=== PATIENT | male | born 1955 | race African-American/Black ===

== ENCOUNTER 2017-07-12 10:12 | Emergency (ER) | payer OTHER, BC ==
[2017-07-12] MEDS: ACETAMINOPHEN 325 MG TAB PO (11:50)
[2017-07-12 11:57] LABS: BASO % 0.3 % (0.0-1.0); EOS % 0.3 % (0.0-3.0); HEMATOCRIT 40.8 % (42.0-52.0); HEMOGLOBIN 14.8 g/dl (14.0-18.0); IMMATURE GRANULOCYTE % 0.3 % (0-0); LYMPH # 2.3 10^3/uL (1.5-4.5); LYMPH % 29.1 % (24.0-44.0); MEAN CORPUSCULAR HEMOGLOBIN 30.2 pg (27.0-33.0); MEAN CORPUSCULAR HGB CONC 36.3 g/dl (32.0-36.5); MEAN CORPUSCULAR VOLUME 83.3 fl (80.0-96.0); MONO # 0.7 10^3/uL (0.0-0.8); MONO % 9.2 % (0.0-5.0); NEUTROPHILS # 4.9 10^3/uL (1.8-7.7); NEUTROPHILS % 60.8 % (36.0-66.0); PLATELET COUNT, AUTOMATED 303 10^3/uL (150-450); RED CELL DISTRIBUTION WIDTH 13.4 % (11.5-14.5)
[2017-07-12 12:20] LABS: NT-PRO BNP 5 PG/ML (<125)
[2017-07-12 12:23] LABS: ALBUMIN 3.7 GM/DL (3.2-5.2); ALBUMIN/GLOBULIN RATIO 0.93 (1.00-1.93); ALKALINE PHOSPHATASE 56 U/L (45-117); ALT/SGPT 23 U/L (12-78); ANION GAP 9 MEQ/L (8-16); AST/SGOT 19 U/L (7-37); BILIRUBIN,DIRECT < 0.1 MG/DL (0.0-0.2); BILIRUBIN,TOTAL 0.3 MG/DL (0.2-1.0); BLOOD UREA NITROGEN 15 MG/DL (7-18); CALCIUM LEVEL 9.9 MG/DL (8.8-10.2); CARBON DIOXIDE LEVEL 29 MEQ/L (21-32); CHLORIDE LEVEL 99 MEQ/L (98-107); CPK CREATINE PHOSPHOKINASE 194 U/L (39-308); CREATININE FOR GFR 1.06 MG/DL (0.70-1.30); GLOMERULAR FILTRATION RATE > 60.0 (>49); GLUCOSE, FASTING 141 MG/DL (70-100); LIPASE 201 U/L (73-393); POTASSIUM SERUM 3.8 MEQ/L (3.5-5.1); SODIUM LEVEL 137 MEQ/L (136-145); TOTAL PROTEIN 7.7 GM/DL (6.4-8.2); TROPONIN I < 0.02 NG/ML (< 0.10)
[2017-07-12 12:24] LABS: CK-MB VALUE MASS 2.2 NG/ML (0.0-3.6); MB/CK RELATIVE INDEX 1.13 (< OR =4)
== END 2017-07-12 12:53 | disposition home or self-care (01) ==
LOC: M ED 10:12
DX: M75.32 Calcific tendinitis of left shoulder (principal); I44.0 Atrioventricular block, first degree; I10 Essential (primary) hypertension; E11.9 Type 2 diabetes mellitus without complications; N40.1 Benign prostatic hyperplasia with lower urinary tract symptoms; Z87.891 Personal history of nicotine dependence; Z79.82 Long term (current) use of aspirin; Z79.84 Long term (current) use of oral hypoglycemic drugs; Z79.899 Other long term (current) drug therapy
CPT/HCPCS: 73030

== ENCOUNTER 2018-08-26 16:50 | Emergency (ER) | payer OTHER ==
[~2018-08-26] VITALS: Ht 177.8 cm; Wt 105.9 kg
[~2018-08-26 16:50] MED LIST: AMLO10TA5; ASPI81TA52; ATOR40TA75; BD; CHLO125TA; LISI40TA; METF10004; METO50TA7; VITA-122
[2018-08-26] MEDS ORDERED: FISH1000 (17:25)
[2018-08-26 17:30] LABS: BASO % 0.4 % (0.0-1.0); EOS # 0.1 10^3/uL (0.0-0.50); EOS % 0.5 % (0.0-3.0); HEMATOCRIT 34.9 % (42.0-52.0); HEMOGLOBIN 12.2 g/dl (13.5-17.5); LYMPH # 2.3 10^3/uL (1.5-4.5); LYMPH % 20.5 % (24.0-44.0); MEAN CORPUSCULAR HEMOGLOBIN 28.5 pg (27.0-33.0); MEAN CORPUSCULAR VOLUME 81.5 fl (80.0-96.0); MONO # 1.4 10^3/uL (0.0-0.8); MONO % 12.7 % (0.0-5.0); NEUTROPHILS # 7.2 10^3/uL (1.8-7.7); NEUTROPHILS % 65.5 % (36.0-66.0); PLATELET COUNT, AUTOMATED 461 10^3/uL (150-450); RED BLOOD COUNT 4.28 10^6/uL (4.30-6.10)
[2018-08-26 17:38] LABS: BLOOD UREA NITROGEN 11 MG/DL (7-18); CALCIUM LEVEL 9.7 MG/DL (8.8-10.2); CARBON DIOXIDE LEVEL 32 MEQ/L (21-32); CHLORIDE LEVEL 97 MEQ/L (98-107); CPK CREATINE PHOSPHOKINASE 158 U/L (39-308); CREATININE FOR GFR 0.91 MG/DL (0.70-1.30); GLOMERULAR FILTRATION RATE > 60.0 (>49); GLUCOSE, FASTING 110 MG/DL (70-100); POTASSIUM SERUM 3.9 MEQ/L (3.5-5.1); SODIUM LEVEL 136 MEQ/L (136-145); TROPONIN I < 0.02 NG/ML (< 0.10)
--- NOTE | 2018-08-26 17:57 | REP ---
Chest one-view HISTORY: Chest pain Comparison: 04/20/2011 The lungs are clear. The heart is normal in size. The pulmonary vasculature is normal in appearance. Impression: No acute disease. Electronically Signed by Fantasma Tavarez MD 08/26/2018 05:49 P
[2018-08-26] MEDS ORDERED: MORPHINE 4 MG/ML 1ML VIAL/SYRINGE (J2270) IV ONE (18:00)
[2018-08-26] MEDS: GASTROGRAFIN SOLUTION 30ML PO SCH ×2 (18:00→19:00)
[2018-08-26 18:09] LABS: ALBUMIN 3.6 GM/DL (3.2-5.2); ALT/SGPT 26 U/L (12-78); BILIRUBIN,DIRECT 0.1 MG/DL (0.0-0.2); BILIRUBIN,TOTAL 0.4 MG/DL (0.2-1.0); LIPASE 199 U/L (73-393); TOTAL PROTEIN 7.6 GM/DL (6.4-8.2)
--- NOTE | 2018-08-26 20:14 | REPVR ---
EXAM: CT Abdomen and Pelvis Without Contrast EXAM DATE/TIME: 08/26/2018 7:37 PM CLINICAL HISTORY: 63 years old, male; Pain; Abdominal pain; Generalized TECHNIQUE: Axial computed tomography images of the abdomen and pelvis without contrast. All CT scans at this facility use at least one of these dose optimization techniques: automated exposure control; mA and/or kV adjustment per patient size (includes targeted exams where dose is matched to clinical indication); or iterative reconstruction. Coronal and sagittal reformatted images were created and reviewed. COMPARISON: No relevant prior studies available. FINDINGS: Lower thorax: Lung parenchyma is unremarkable except for dependent atelectasis. ABDOMEN: Liver: There appear to be multiple heterogeneous low density lesions in the liver the largest of which is 8 cm in the hepatic dome. Gallbladder and bile ducts: Gallbladder is present and shows no evidence of gallstone. Pancreas: Noncontrast pancreas shows no obvious mass or adjacent fluid. Spleen: Noncontrast spleen shows no obvious focal deformity. Adrenals: Adrenal glands are normal in appearance. Kidneys and ureters: Kidneys show no stone or hydronephrosis. Stomach and bowel: No evidence of small bowel obstruction. Diverticular changes are present within the colon without inflammation. Appendix: Normal caliber appendix is identified, with no adjacent inflammation. PELVIS: Bladder: Bladder appears normal. Reproductive: Unremarkable as visualized. ABDOMEN and PELVIS: Intraperitoneal space: No pneumoperitoneum. Bones/joints: Degenerative changes are seen in the lumbar spine with disc height loss, endplate osteophytes and hypertrophic facet arthropathy. Soft tissues: No effacement of normal fat planes in the ischiorectal fossa. Vasculature: Normal. No abdominal aortic aneurysm. Lymph nodes: No abnormal pelvic sidewall lymph nodes. Other findings: Evaluation of solid organs is limited without IV contrast. IMPRESSION: 1. Multiple ill-defined low-density lesions within the liver, highly suggestive of hepatic metastases from adenocarcinoma. This could be from colon or pancreas. No identifiable primary lesion. 2. Colonic diverticular changes without evidence of acute diverticulitis 3. Exam limitations, as outlined above Electronically signed by: Nic Trevizo On 08/26/2018 20:13:32 PM
--- NOTE | 2018-08-26 20:54 | ECGEPIP ---
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
[2018-08-26] MEDS ORDERED: MIRA3350 PO ×2 (21:17→21:20)
[2018-08-26] MEDS ORDERED: OXYC1TAB23 PO (21:17)
[2018-08-26] MEDS ORDERED: PERCOCET 5MG/325MG TAB PO ONE (21:30)
[2018-08-26 21:35] VITALS: BP 163/85
== END 2018-08-26 21:55 | disposition home or self-care (01) ==
LOC: M ED 16:50
DX: R10.9 Unspecified abdominal pain (principal)
CPT/HCPCS: 71045; 74176; 80048; 80076; 82550; 82553; 83690; 84484; 85025; 93005; 93041; 94760; 96374; 99285; J2270; Q9963

== ENCOUNTER 2018-10-20 11:48 | Inpatient (IN) | payer OTHER ==
[~2018-10-20] VITALS: Ht 177.8 cm; Wt 100.3 kg
[~2018-10-20 11:48] MED LIST changes: -AMLO10TA5; +AMLO10TA5 PO; -ATOR40TA75; +ATOR40TA75 PO; +FISH1000 PO; -LISI40TA; +LISI40TA PO; -METF10004; +METF10004 PO; +MIRA3350 PO; +OXYC1TAB23 PO; -VITA-122; +VITA-122 PO
[2018-10-20] MEDS ORDERED: LANTINJ4 SC (12:19)
[2018-10-20] MEDS ORDERED: VICT18IN SC (12:19)
[2018-10-20] MEDS ORDERED: INSUH10VL SC (12:19)
[2018-10-20 12:46] LABS: BASO % 0.2 % (0.0-1.0); EOS # 0.1 10^3/uL (0.0-0.50); EOS % 0.9 % (0.0-3.0); HEMATOCRIT 30.1 % (42.0-52.0); HEMOGLOBIN 10.4 g/dl (13.5-17.5); LYMPH # 2.2 10^3/uL (1.5-4.5); LYMPH % 15.2 % (24.0-44.0); MEAN CORPUSCULAR HEMOGLOBIN 25.6 pg (27.0-33.0); MEAN CORPUSCULAR HGB CONC 34.6 g/dl (32.0-36.5); MEAN CORPUSCULAR VOLUME 74.1 fl (80.0-96.0); MONO # 1.8 10^3/uL (0.0-0.8); MONO % 12.7 % (0.0-5.0); NEUTROPHILS # 10.2 10^3/uL (1.8-7.7); NEUTROPHILS % 70.3 % (36.0-66.0); PLATELET COUNT, AUTOMATED 550 10^3/uL (150-450); RED BLOOD COUNT 4.06 10^6/uL (4.30-6.10); WHITE BLOOD COUNT 14.5 10^3/uL (4.0-10.0)
[2018-10-20] MEDS ORDERED: NS 1,000 ML IV ONE (13:00)
[2018-10-20] MEDS ORDERED: ONDANSETRON 4MG/2ML VIAL (J2405) IV ONE (13:15)
[2018-10-20 13:26] LABS: ALBUMIN 3.1 GM/DL (3.2-5.2); BILIRUBIN,TOTAL 0.5 MG/DL (0.2-1.0); CALCIUM LEVEL 10.5 MG/DL (8.8-10.2); CREATININE FOR GFR 2.04 MG/DL (0.70-1.30); GLOMERULAR FILTRATION RATE 42.6 (>49); POTASSIUM SERUM 4.3 MEQ/L (3.5-5.1); THYROID STIMULATING HORMONE 1.2 uIU/ML (0.358-3.740); TOTAL PROTEIN 6.9 GM/DL (6.4-8.2)
--- NOTE | 2018-10-20 14:25 | REP ---
CT CHEST WITHOUT IV CONTRAST: CT chest performed without IV contrast. Sagittal and coronal reconstruction images are performed. No infiltrate is seen in either lung. No axillary or definite mediastinal adenopathy is seen. Atherosclerotic calcifications are seen of the thoracic aorta without aneurysm. The heart is not enlarged. There is no pleural or pericardial effusion. Obstructive lesion most consistent with a metastatic lesion is seen in the anterolateral aspect of the right 7th rib. Another is seen in the posterior aspect of the left 6th rib. Ill-defined low density is seen in the T8, T9, and T12 vertebral bodies suggesting metastatic lesions. IMPRESSION: No infiltrate in either lung. No significant adenopathy seen in the chest. There appear to be metastatic lesions involving the right 7th, left 6th ribs as well as T8, T9 and T12 vertebral bodies. Electronically Signed by Rodríguez Perkins MD 10/20/2018 04:23 P
--- NOTE | 2018-10-20 14:32 | REP ---
CT ABDOMEN AND PELVIS WITHOUT ORAL OR IV CONTRAST: CT abdomen and pelvis performed without oral or IV contrast. Sagittal and coronal reconstruction images are performed. The liver demonstrates multiple hypodense nodules diffusely compatible with diffuse metaphyses. There may be confluent nodules at both right and left domes of the liver. Gallbladder is not well distended. The spleen, adrenals, pancreas and kidneys are grossly unremarkable. There is no hydroureteronephrosis. There is moderate atherosclerotic calcification of the abdominal aorta without aneurysm. I see no significant lymphadenopathy. I see no free air or free fluid. The appendix is normal. No gross bowel wall thickening is seen. No definite pelvic mass is seen. Urinary bladder is not well distended or evaluated. There is left colonic diverticulosis. IMPRESSION: Diffuse lesions in the liver most likely representing metastases. No other gross abnormalities. Electronically Signed by Rodríguez Perkins MD 10/20/2018 04:23 P
[2018-10-20 17:17] LABS: CALCIUM LEVEL 9.8 MG/DL (8.8-10.2); CREATININE FOR GFR 1.82 MG/DL (0.70-1.30); GLOMERULAR FILTRATION RATE 48.6 (>49); POTASSIUM SERUM 3.8 MEQ/L (3.5-5.1)
[2018-10-20] MEDS ORDERED: ASPI81TA85 PO (17:20)
[2018-10-20] MEDS ORDERED: CHLO25TA PO (17:23)
[2018-10-20] MEDS ORDERED: ACET500T15 PO (17:23)
[2018-10-20] MEDS ORDERED: ACETAMINOPHEN 500 MG TAB PO PRN (18:00)
--- NOTE | 2018-10-20 18:07 | HPEPDOC ---
[facility] Medical History & Physical Date of Admission October 20, 2018 Attending Physician: SADIQ EDWARDS MD History and Physical CHIEF COMPLAINT: 12 hour history of dizziness and weakness HISTORY OF PRESENT ILLNESS: Patient is a 63-year-old -[place] male, past medical history significant for recent diagnosis of likely liver cancer with bone metastases, insulin dependent diabetes mellitus, hypertension, hypercholesterolemia, who presents emergency department complaining of 12 hours of extreme fatigue, dizziness and lethargy. Patient reports over the last week he has felt increasingly more fatigued. He has not had an appetite and is subsequently reduced his oral intake greatly. This morning, at approximately 06 100, patient woke up and noted feeling lightheaded and dizzy in the shower. Symptoms seemingly resolved with rest, but continued to persist throughout the day and through patient's presentation in the ED. In the emergency department he was noted to have a low blood pressure of 88/50 , a CBC indicated a white count of 14.5 without any overt sign of infection. CMP demonstrated an DAY with BUN/creatinine of 33/2.04. Patient was given a 1 L bolus of fluid in the emergency department, with improvement in his symptoms. Patient's blood pressure remained soft, dipping to the 90s systolic. Hospitalist team was consulted to admit the patient for further management and evaluation. Of historical note, patient receives his medical care at the [facility]. Following his recent diagnosis in august 2017 of multiple liver metastasis, patient has had a difficult time being seen by a [place] speciality provider. He is scheduled for an appointment this upcoming 10/24/18, for initial evaluation. Patient will likely require liver biopsy and colonoscopy. Given the difficulty of obtaining these tests through the [place] system, and assuming resolutions of patient's DAY, the after mentioned diagnostic studies will be attempted to be obtained during this admission. PAST MEDICAL HISTORY: 1. Recent diagnosis of liver metastasis in August 2018 2. Insulin-dependent, type 2 diabetes mellitus 3. Hypertension 4. Hypercholesterolemia PAST SURGICAL HISTORY: 1. Left ACL repair, status post injury, 1987 2. 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 ETOH: Patient reports history of 2 beers nightly Illicit drug use: Patient reports history of occasional marijuana use Other relevant social factors: Patient is a FAMILY HISTORY: Largely noncontributory given patient's advanced age. Patient does report a distant history of diabetes, coronary artery disease and chronic kidney disease requiring dialysis ALLERGIES: Please see below. REVIEW OF SYSTEMS: CONSTITUTIONAL: Patient reports a 2 to three-week history of increasing fatigue. He denies any subjective fevers, chills, night sweats, or changes in weight. HEENT: Patient reports 12 hour history of dizziness, particularly when standing associated with blurry vision, since resolved with IV fluids. Patient denies any history of headache, difficulty hearing, difficulty swallowing. CARDIOVASCULAR: Patient denies chest pain/discomfort, denies pleuritic chest pain RESPIRATORY: Reports history of morning cough, Patient denies any difficulty breathing, shortness of breath, orthopnea, paroxysmal nocturnal dyspnea, wheezing GASTROINTESTINAL: Patient reports some nausea this morning and a two-week history of constipation, he denies reflux symptoms, abdominal pain/discomfort, diarrhea, no history of recent emesis GENITOURINARY: Patient denies any difficulty urinating SKIN: Patient denies any rashes or new/evolving lesions MUSCULOSKELETAL: Patient denies any weakness or muscular skeletal pain NEUROLOGICAL: Patient denies any numbness or tingling in his extremities bilaterally, patient denies any focal neurologic deficits ENDOCRINE: Denies polyuria or polydipsia HEMATOLOGIC/LYMPHATIC: No recent bruising HOME MEDICATIONS: Please see below. PHYSICAL EXAMINATION: VITAL SIGNS: Temperature 97, pulse 77, respiratory rate 16, blood pressure 132/70, pulse oximetry 99 % on room air. GENERAL APPEARANCE: Patient is alert and oriented, resting comfortably in his emergency room bed, in hospital clothing, in no acute distress HEENT: Normocephalic, atraumatic, PERRLA, EOMI, good dental hygiene, no posterior pharyngeal erythema CARDIOVASCULAR: Regular rate and rhythm, normal S1 and S2 free of murmurs LUNGS: Clear to auscultation bilaterally, free of wheezes rales or rhonchi ABDOMEN: Patient reports mild tenderness in the right upper quadrant and lower quadrants bilaterally. Bowel sounds are present throughout. Abdomen is soft, nondistended. EXTREMITIES: Patient moves extremities equally and bilaterally. No lower extremity swelling or edema. Peripheral pulses are intact bilaterally via radial and posterior tibial arteries. tenderness bilaterally NEUROLOGICAL: No focal neurologic deficits, no aphasia, no facial drooping, no extremity weakness, patient is at baseline mentation per who is bedside PSYCHIATRIC: Mood and affect are appropriate LABORATORY DATA: See below. IMAGING: CT abdomen and pelvis (10/20/18): Diffuse lesions in the liver most likely representing metastasis. No other gross abnormalities Chest CT (10/20/18): No infiltrate in either lung. No significant adenopathy se en in the chest. There appears to be metastatic lesions involving the right seventh, left sixth ribs as well as T8, T9 and T12 vertebral bodies ASSESSMENT: Patient is a 63-year-old -[place] male, past medical history significant for recent diagnosis of liver metastasis unknown source, insulin-dependent diabetes mellitus, hypertension hypercholesterolemia, who presents emergency room complaining of 12 hours of increased weakness and dizziness. Evaluation emergency department revealed that the patient did have an DAY. Fluids were given with moderate improvement in the patient's symptoms. Hospitalist team was contacted to admit the patient for further evaluation and treatment. PLAN: Acute kidney injury, secondary to dehydration and decreased appetite over the last week on the back ground of being on ACEI an Diuretics. -Continue normal saline at a rate of 125 ml per hour -Recheck BMP to monitor for renal improvement -stop lisinopril and thiazide. -CT abdomen pelvis did not show any obstructive uropathy Diffuse metastatic lesions in liver , ribs and vertebrae unknown primary. -Identification of patient's likely liver was identified at a prior emergency department removed visit greater than 6 weeks ago. [facility] -Given that the patient will likely require liver biopsy in the near future, and the increasing length of time required to obtain such studies [facility] the [facility], an ultrasound-guided liver biopsy will be performed in the morning. This was discussed with the radiology department who suggested ordering the study stat. -Plan to discuss with GI tomorrow regarding the possibility of patient receiving a colonoscopy during his hospital stay. -Keep patient nothing by mouth after midnight Insulin-dependent diabetes mellitus type 2 -Hold patient's home diabetic medication. -Given the patient's blood sugar was approximately 65 when he presented to the emergency department, patient will be started on SSI with FSBG checks only before meals -Patient able to have a regular diet until midnight this evening, at which point he should remain nothing by mouth for his liver biopsy in the morning. Hypertension -presented with hypotension -While patient is emergency department his blood pressure dipped to a systolic in the 90s. -On multiple blood pressure medications. will stop these -Continue to monitor vitals Hypercholesterolemia -Continue home atorvastatin DVT prophylaxis: SQ heparin Code Status: FULL CODE Vital Signs Vital Signs Date Time Temp Pulse Resp B/P (MAP) Pulse Ox O2 Delivery O2 Flow Rate FiO2 10/20/18 16:40 72 121/62 (81) 77 125/68 (87) 80 132/70 (90) 10/20/18 16:37 99 10/20/18 11:48 97.0 16 Room Air Laboratory Data Labs 24H Laboratory Tests 2 10/20/18 12:35: Immature Granulocyte % (Auto) 0.7, White Blood Count 14.5H, Red Blood Count 4.06L, Hemoglobin 10.4L, Hematocrit 30.1L, Mean Corpuscular Volume 74.1L, Mean Corpuscular Hemoglobin 25.6L, Mean Corpuscular Hemoglobin Concent 34.6, Red Cell Distribution Width 14.6H, Platelet Count 550H, Neutrophils (%) (Auto) 70.3H, Lymphocytes (%) (Auto) 15.2L, Monocytes (%) (Auto) 12.7H, Eosinophils (%) (Auto) 0.9, Basophils (%) (Auto) 0.2, Neutrophils # (Auto) 10.2H, Lymphocytes # (Auto) 2.2, Monocytes # (Auto) 1.8H, Eosinophils # (Auto) 0.1, Basophils # (Auto) 0.0, Nucleated Red Blood Cells % (auto) 0.0, Anion Gap 9, Glomerular Filtration Rate 42.6L, Blood Urea Nitrogen 33H, Creatinine 2.04H, Sodium Level 131L, Potassium Level 4.3, Chloride Level 96L, Carbon Dioxide Level 26, Calcium Level 10.5H, Aspartate Amino Transf (AST/SGOT) 76H, Alanine Aminotransferase (ALT/SGPT) 40, Alkaline Phosphatase 356H, Total Bilirubin 0.5, Total Protein 6.9, Albumin 3.1L, Albumin/Globulin Ratio 0.82L, Lipase 108, Thyroid Stimulating Hormone (TSH) 1.200 10/20/18 16:31: Anion Gap 8, Glomerular Filtration Rate 48.6L, Blood Urea Nitrogen 34H, Creatinine 1.82H, Sodium Level 135L, Potassium Level 3.8, Chloride Level 99, Carbon Dioxide Level 28, Calcium Level 9.8, Urine Color DONNA, Urine Appearance CLOUDYH, Urine pH 5.0, Urine Specific [place] 1.025, Urine Protein 1+H, Urine Glucose (UA) NEGATIVE, Urine Ketones TRACEH, Urine Blood NEGATIVE, Urine Nitrite NEGATIVE, Urine Bilirubin 1+H, Urine Urobilinogen 4.0H, Urine Leukocyte Esterase NEGATIVE, Urine WBC (Auto) 3, Urine RBC (Auto) 3, Urine Hyaline Casts (Auto) 15, Urine Bacteria (Auto) NEGATIVE, Urine Squamous Epithelial Cells 1, Urine Mucus (Auto) SMALL, Urine Sperm (Auto) CBC/BMP Laboratory Tests 10/20/18 12:35 Red Blood Count 4.06 L, Mean Corpuscular Volume 74.1 L, Mean Corpuscular Hemoglobin 25.6 L, Mean Corpuscular Hemoglobin Concent 34.6, Red Cell Distribution Width 14.6 H, Neutrophils (%) (Auto) 70.3 H, Lymphocytes (%) (Auto) 15.2 L, Monocytes (%) (Auto) 12.7 H, Eosinophils (%) (Auto) 0.9, Basophils (%) ( Auto) 0.2, Neutrophils # (Auto) 10.2 H, Lymphocytes # (Auto) 2.2, Monocytes # (Auto) 1.8 H, Eosinophils # (Auto) 0.1, Basophils # (Auto) 0.0, Calcium Level 10.5 H, Aspartate Amino Transf (AST/SGOT) 76 H, Alanine Aminotransferase (ALT/SGPT) 40, Alkaline Phosphatase 356 H, Total Bilirubin 0.5, Total Protein 6.9, Albumin 3.1 L 10/20/18 16:31 Calcium Level 9.8 Home Medications Scheduled Amlodipine Besylate (Amlodipine Besylate) 10 Mg Tablet, 10 MG PO DAILY Aspirin (Aspir 81) 81 Mg Tablet.dr, 81 MG PO DAILY Atorvastatin Calcium (Atorvastatin Calcium) 40 Mg Tab, 40 MG PO DAILY Carvedilol (Carvedilol) 25 Mg Tablet, 12.5 MG PO BID Cholecalciferol (Vitamin D3) (Vitamin D3) 1,000 Unit Tab, 1,000 UNITS PO DAILY Insulin Glargine,Hum.rec.anlog (Lantus Solostar) 100 Unit/1 Ml Insuln.pen, 25 UNIT SC QPM Insulin Human Lispro (Novolog) 100 Unit/1 Ml Vial, 10 UNITS SC DAILY BEFORE MEALS Lisinopril (Lisinopril) 10 Mg Tablet, 10 MG PO QHS Metformin HCl (Metformin HCl) 1,000 Mg Tab, 1,000 MG PO BID Chualar-3 Fatty Acids/Fish Oil (Fish Oil 1,000 mg Capsule) 1,000 Mg Cap, 2,000 MG PO BID Scheduled PRN Acetaminophen (Acetaminophen) 500 Mg Tablet, 1,000 MG PO Q6H PRN for PAIN Allergies Coded Allergies: No Known Drug Allergies (Verified Allergy, Unknown, 10/20/18) A-FIB/CHADSVASC A-FIB History Current/History of A-Fib/PAF?: No Attending Note Attending Note I personally performed a history and physical examination of the patient and discussed his management with the resident. I reviewed the resident's note and agree with the documented findings and plan of care with the following addendum Patient seen to have diffuse mets in liver and bones source yet unidentified. noted to be anemic which has developed over the last 2 to 3 months probably due to progression of cancer. Will check iron studies. Will try to arrange for liver biopsy to get a tissue diagnosis of the mets. Will set up appointment with oncology after discharge. TIN CENTENO DO October 20, 2018 18:07 SADIQ EDWARDS MD October 21, 2018 11:54
[2018-10-20] MEDS ORDERED: DEXTROSE 50% 50 ML SYRINGE IV PRN (18:30)
[2018-10-20] MEDS ORDERED: GLUCAGON FOR INJ 1 MG VIAL (J1610) SC PRN (18:30)
[2018-10-20] MEDS ORDERED: GLUCOSE 4 GM CHEW TABLET PO PRN (18:30)
[2018-10-20] MEDS: ENOXAPARIN 30 MG/0.3 ML SYR (J1650) SC SCH (19:07)
[2018-10-20 20:51] VITALS: BP 137/67
[2018-10-20] MEDS: NS 1,000 ML IV SCH (21:59)
[2018-10-21] MEDS: NS 1,000 ML IV SCH (05:43)
[2018-10-21 05:59] LABS: BASO % 0.2 % (0.0-1.0); EOS # 0.1 10^3/uL (0.0-0.50); HEMATOCRIT 28.7 % (42.0-52.0); HEMOGLOBIN 9.9 g/dl (13.5-17.5); LYMPH # 1.6 10^3/uL (1.5-4.5); LYMPH % 13.6 % (24.0-44.0); MEAN CORPUSCULAR HGB CONC 34.5 g/dl (32.0-36.5); MEAN CORPUSCULAR VOLUME 75.3 fl (80.0-96.0); MONO # 1.7 10^3/uL (0.0-0.8); MONO % 14.2 % (0.0-5.0); NEUTROPHILS # 8.3 10^3/uL (1.8-7.7); NEUTROPHILS % 70.3 % (36.0-66.0); PLATELET COUNT, AUTOMATED 509 10^3/uL (150-450); RED BLOOD COUNT 3.81 10^6/uL (4.30-6.10); WHITE BLOOD COUNT 11.7 10^3/uL (4.0-10.0)
[2018-10-21 06:00] VITALS: BP 137/69
[2018-10-21 06:21] LABS: BLOOD UREA NITROGEN 22 MG/DL (7-18); CALCIUM LEVEL 9.6 MG/DL (8.8-10.2); CARBON DIOXIDE LEVEL 26 MEQ/L (21-32); CHLORIDE LEVEL 102 MEQ/L (98-107); CREATININE FOR GFR 0.88 MG/DL (0.70-1.30); GLOMERULAR FILTRATION RATE > 60.0 (>49); GLUCOSE, FASTING 124 MG/DL (70-100); POTASSIUM SERUM 3.9 MEQ/L (3.5-5.1); SODIUM LEVEL 135 MEQ/L (136-145)
--- NOTE | 2018-10-21 07:25 | ECGEPIP ---
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
[2018-10-21] MEDS: ENOXAPARIN 30 MG/0.3 ML SYR (J1650) SC SCH (07:43)
[2018-10-21] MEDS: ATORVASTATIN 20 MG TAB PO SCH (08:16)
[2018-10-21] MEDS: HumaLOG INSULIN (NovoLOG) PER UNIT SC SCH ×3 (08:16→18:09)
[2018-10-21] MEDS ORDERED: LIDOCAINE 1% MDV 20ML VIAL As Ordered ONE (10:06)
--- NOTE | 2018-10-21 11:37 | IPNPDOC ---
Text Note Date of Service The patient was seen on 10/21/18. NOTE SUBJECTIVE: Patient was interviewed and examined in his hospital room. Patient was found to be resting comfortably in hospital gown. He reports no issues overnight. Patient shares that he is anxious regarding upcoming procedure this morning. His questions were answered and his concerns addressed in detail. OBJECTIVE: VITALS: Please see below. EXAM: GENERAL APPEARANCE: Patient is alert and oriented, resting comfortably in his hospital bed,in hospital clothing, in no acute distress HEENT: Normocephalic, atraumatic, PERRLA, EOMI, good dental hygiene, no posterior pharyngeal erythema CARDIOVASCULAR: Regular rate and rhythm, normal S1 and S2 free of murmurs LUNGS: Clear to auscultation bilaterally, free of wheezes rales or rhonchi ABDOMEN: Patient continues to report mild tenderness in the right upper quadrant and lower quadrants bilaterally. Bowel sounds are present throughout. Abdomen is soft, nondistended. EXTREMITIES: Patient moves extremities equally and bilaterally. No lower extremity swelling or edema or tenderness bilaterally NEUROLOGICAL: No focal neurologic deficits, no aphasia, no facial drooping, no extremity weakness PSYCHIATRIC: Mood and affect are appropriate LABORATORY: Please see below. IMAGING: CT abdomen and pelvis (10/20/18): Diffuse lesions in the liver most likely representing metastasis. No other gross abnormalities Chest CT (10/20/18): No infiltrate in either lung. No significant adenopathy seen in the chest. There appears to be metastatic lesions involving the right seventh, left sixth ribs as well as T8, T9 and T12 vertebral bodies MICRO: Please see below. ASSESSMENT: Patient is a 63-year-old -[place] male, past medical history significant for recent diagnosis of liver metastasis fro yet unidentified primary, insulin- dependent diabetes mellitus, hypertension hypercholesterolemia, who presents emergency room complaining of 12 hours of increased weakness and dizziness. Evaluation emergency department revealed that the patient did have an DAY. Fluids were given with moderate improvement in the patient's symptoms. Hospitalist team was contacted to admit the patient for further evaluation and treatment. PLAN: Acute kidney injury, secondary to dehydration and decreased appetite over the last week -BMP from this morning indicates resolving acute kidney injury -Normal saline rate decreased to 75 mL per hour -Recheck BMP to monitor for renal improvement Multiple metastasis in liver and bones yet unidentified primary. -Patient will have an ultrasound-guided liver biopsy performed this morning -He has remained nothing by mouth overnight Insulin-dependent diabetes mellitus type 2 -Hold patient's home diabetic medication. -Given the patient's blood sugar was approximately 65 when he presented to the emergency department, patient will be started on SSI with FSBG checks only before meals -Patient will return to a regular diet following his procedure this morning Hypertension -While patient is emergency department his blood pressure dipped to a systolic in the 90s. -Blood pressure 137/69 this morning -Continue to monitor vitals Hypercholesterolemia -Continue home atorvastatin DVT prophylaxis: SQ heparin Code Status: FULL CODE A-FIB/CHADSVASC A-FIB History Current/History of A-Fib/PAF?: No VS,Fishbone, I+O VS, Fishbone, I+O Laboratory Tests 10/20/18 12:35 Red Blood Count 4.06 L, Mean Corpuscular Volume 74.1 L, Mean Corpuscular Hemoglobin 25.6 L, Mean Corpuscular Hemoglobin Concent 34.6, Red Cell Distribution Width 14.6 H, Neutrophils (%) (Auto) 70.3 H, Lymphocytes (%) (Auto) 15.2 L, Monocytes (%) (Auto) 12.7 H, Eosinophils (%) (Auto) 0.9, Basophils (%) (Auto) 0.2, Neutrophils # (Auto) 10.2 H, Lymphocytes # (Auto) 2.2, Monocytes # (Auto) 1.8 H, Eosinophils # (Auto) 0.1, Basophils # (Auto) 0.0, Calcium Level 1 0.5 H, Aspartate Amino Transf (AST/SGOT) 76 H, Alanine Aminotransferase (ALT/SGPT) 40, Alkaline Phosphatase 356 H, Total Bilirubin 0.5, Total Protein 6.9, Albumin 3.1 L 10/20/18 16:31 Calcium Level 9.8 10/21/18 05:36 Red Blood Count 3.81 L, Mean Corpuscular Volume 75.3 L, Mean Corpuscular Hemoglobin 26.0 L, Mean Corpuscular Hemoglobin Concent 34.5, Red Cell Distribution Width 14.6 H, Neutrophils (%) (Auto) 70.3 H, Lymphocytes (%) (Auto) 13.6 L, Monocytes (%) (Auto) 14.2 H, Eosinophils (%) (Auto) 1.0, Basophils (%) (Auto) 0.2, Neutrophils # (Auto) 8.3 H, Lymphocytes # (Auto) 1.6, Monocytes # (Auto) 1.7 H, Eosinophils # (Auto) 0.1, Basophils # (Auto) 0.0, Calcium Level 9.6 Vital Signs Date Time Temp Pulse Resp B/P (MAP) Pulse Ox O2 Delivery O2 Flow Rate FiO2 10/21/18 06:00 97.5 88 18 137/69 (91) 97 10/20/18 20:26 Room Air I&O- Last 24 Hours up to 6 AM 10/21/18 06:00 Intake Total 750 ml Output Total 1450 ml Balance -700 ml GME ATTESTATION GME ATTESTATION My faculty preceptor for this patient encounter was physically present during the encounter and was fully available. All aspects of the patient interview, examination, medical decision making process, and medical care plan development were reviewed and approved by the faculty preceptor. The faculty preceptor is aware and concurs with the plan as stated in the body of this note and will attest to such by his/her cosignature. ATTENDING NOTE I personally examined the patient and discussed his management with the resident. I reviewed the resident's note and agree with the documented findings and plan of care. TIN CENTENO DO October 21, 2018 11:37 SADIQ EDWARDS MD October 21, 2018 12:26
[2018-10-21 12:45] VITALS: BP 179/83
[2018-10-21 13:24] LABS: FERRITIN 2836 NG/ML (26-388); IRON (FE) 26 UG/DL (65-175); PERCENT SATURATION 14.8 % (19.7-50.0); TOTAL IRON BINDING CAPACITY 176 UG/DL (250-450)
[2018-10-21 13:47] LABS: FOLATE 6.6 NG/ML
[2018-10-21 14:00] VITALS: BP 142/70
[2018-10-21 22:00] VITALS: BP 152/84
[2018-10-22] MEDS ORDERED: METAMUCIL (PSYLLIUM) PACKET PO PRN (00:30)
[2018-10-22] MEDS ORDERED: SIMETHICONE 80 MG CHEW TAB PO ONE (00:30)
[2018-10-22] MEDS ORDERED: MIRALAX *UNIT DOSE* 17GM PACKET PO PRN (00:30)
[2018-10-22 06:00] VITALS: BP 150/81
[2018-10-22 06:02] LABS: BASO % 0.2 % (0.0-1.0); EOS # 0.1 10^3/uL (0.0-0.50); EOS % 1.1 % (0.0-3.0); HEMATOCRIT 28.8 % (42.0-52.0); HEMOGLOBIN 9.9 g/dl (13.5-17.5); LYMPH # 1.8 10^3/uL (1.5-4.5); LYMPH % 13.7 % (24.0-44.0); MEAN CORPUSCULAR HGB CONC 34.4 g/dl (32.0-36.5); MEAN CORPUSCULAR VOLUME 75.6 fl (80.0-96.0); MONO # 1.9 10^3/uL (0.0-0.8); MONO % 14.7 % (0.0-5.0); NEUTROPHILS # 9.1 10^3/uL (1.8-7.7); NEUTROPHILS % 69.7 % (36.0-66.0); PLATELET COUNT, AUTOMATED 447 10^3/uL (150-450); RED BLOOD COUNT 3.81 10^6/uL (4.30-6.10); WHITE BLOOD COUNT 13.1 10^3/uL (4.0-10.0)
[2018-10-22 06:29] LABS: BLOOD UREA NITROGEN 11 MG/DL (7-18); CALCIUM LEVEL 10.5 MG/DL (8.8-10.2); CARBON DIOXIDE LEVEL 32 MEQ/L (21-32); CHLORIDE LEVEL 100 MEQ/L (98-107); CREATININE FOR GFR 0.64 MG/DL (0.70-1.30); GLOMERULAR FILTRATION RATE > 60.0 (>49); GLUCOSE, FASTING 141 MG/DL (70-100); POTASSIUM SERUM 4.1 MEQ/L (3.5-5.1); SODIUM LEVEL 136 MEQ/L (136-145)
[2018-10-22] MEDS: HumaLOG INSULIN (NovoLOG) PER UNIT SC SCH (08:49)
[2018-10-22] MEDS: ENOXAPARIN 30 MG/0.3 ML SYR (J1650) SC SCH (08:49)
[2018-10-22] MEDS: ATORVASTATIN 20 MG TAB PO SCH (08:49)
[2018-10-22] MEDS ORDERED: LEVEMIR (INSULIN DETEMIR) 1 UNITS/0.01ML SC SCH (09:00)
--- NOTE | 2018-10-22 09:43 | DS.PDOC ---
Discharge Summary General Date of Admission October 20, 2018 at 17:17 Date of Discharge October 22, 2018 Attending Physician: SADIQ EDWARDS MD Discharge Summary PROCEDURES PERFORMED DURING STAY: Patient had an ultrasound guided needle biopsy of his hepatic metastases performed on 10/21/18. ADMITTING DIAGNOSES: 1. Acute kidney injury, likely dehydration 2 Diffuse metastatic lesions in liver, ribs and vertebrae with unknown primary 3. Insulin-dependent diabetes mellitus type 2 4. Hypertension 5. Hypercholesterolemia DISCHARGE DIAGNOSES: 1. Acute kidney injury, likely dehydration 2 Diffuse metastatic lesions in liver, ribs and vertebrae with unknown primary 3. Insulin-dependent diabetes mellitus type 2 4. Hypertension 5. Hypercholesterolemia COMPLICATIONS/CHIEF COMPLAINT: Faraz; Metastasis. HISTORY OF PRESENT ILLNESS: Patient is a 63-year-old -[place] male, past medical history significant for recent diagnosis of likely liver cancer with bone metastases, insulin dependent diabetes mellitus, hypertension, hypercholesterolemia, who presents emergency department complaining of 12 hours of extreme fatigue, dizziness and lethargy. Patient reports over the last week he has felt increasingly more fatigued. He has not had an appetite and is subsequently reduced his oral intake greatly. This morning, at approximately 06 100, patient woke up and noted feeling lightheaded and dizzy in the shower. Symptoms seemingly resolved with rest, but continued to persist throughout the day and through patient's presentation in the ED. In the emergency department he was noted to have a low blood pressure of 88/50 , a CBC indicated a white count of 14.5 without any overt sign of infection. CMP demonstrated an FARAZ with BUN/creatinine of 33/2.04. Patient was given a 1 L bolus of fluid in the emergency department, with improvement in his symptoms. Patient's blood pressure remained soft, dipping to the 90s systolic. Hospitalist team was consulted to admit the patient for further management and evaluation. Of historical note, patient receives his medical care at the [facility]. Following his recent diagnosis in august 2017 of multiple liver metastasis, patient has had a difficult time being seen by a [place] speciality provider. He is scheduled for an appointment this upcoming 10/24/18, for initial evaluation. Patient will likely require liver biopsy and colonoscopy. Given the difficulty of obtaining these tests through the [place] system, and assuming resolutions of patient's FARAZ, the after mentioned diagnostic studies will be attempted to be obtained during this admission. HOSPITAL COURSE: Upon admission to the floor, patient continued to receive IV fluids with monitoring of his kidney function via BMPs. By morning, patient's a FARAZ was found to be resolving. An ultrasound-guided liver biopsy was performed the morning of 10/22/18 without any adverse events. On the morning of discharge, patient's vitals remained stable, his morning lab works did not show any acute abnormalities. Discharge was discussed with the patient in detail and his questions answered appropriately. Patient was in agreement with the plan. DISCHARGE MEDICATIONS: Please see below. ALLERGIES: Please see below. PHYSICAL EXAMINATION ON DISCHARGE: GENERAL APPEARANCE: Patient is alert, oriented, resting comfortably in his hospital bed, wearing hospital gown. In no acute distress. Patient is able to answer questions appropriately and participate in his care HEENT: Normocephalic, atraumatic, PERRLA, EOMI, good dental hygiene, no posterior pharyngeal erythema CARDIOVASCULAR: Regular rate and rhythm, normal S1 and S2 free of murmurs LUNGS: Clear to auscultation bilaterally, free of wheezes rales or rhonchi ABDOMEN: Soft, nontender, nondistended. Gauze covering needle biopsy incision site noted to be free of blood or drainage. No surrounding erythema or other signs of infection. EXTREMITIES: Patient moves extremities equally and bilaterally. No lower extremity swelling or edema. Peripheral pulses are intact bilaterally via radial and posterior tibial arteries. tenderness bilaterally NEUROLOGICAL: No focal neurologic deficits, no aphasia, no facial drooping, no extremity weakness PSYCHIATRIC: Mood and affect are appropriate LABORATORY DATA: Please see below. IMAGING: CT abdomen and pelvis (10/20/18): Diffuse lesions in the liver most likely representing metastasis. No other gross abnormalities Chest CT (10/20/18): No infiltrate in either lung. No significant adenopathy seen in the chest. There appears to be metastatic lesions involving the right seventh, left sixth ribs as well as T8, T9 and T12 vertebral bodies ACTIVITY: As tolerated DIET: As tolerated, please limit calcium intake as discussed at time of discharge DISCHARGE PLAN: Discharge home with close follow-up DISCHARGE INSTRUCTIONS: Please monitor dietary and supplemental calcium intake as discussed on discharge. [facility] Please follow-up with [facility] oncology in 7 to 10 days Please return to the emergency department should your symptoms worsen or fail to improve. DISCHARGE CONDITION: Stable TIME SPENT ON DISCHARGE: Greater than 35 minutes. Vital Signs/I&Os Vital Signs Date Time Temp Pulse Resp B/P (MAP) Pulse Ox O2 Delivery O2 Flow Rate FiO2 10/22/18 06:00 97.6 73 14 150/81 (104) 97 10/20/18 20:26 Room Air I&O- Last 24 Hours up to 6 AM 10/22/18 06:00 Intake Total 2760 ml Output Total 1500 ml Balance 1260 ml Laboratory Data Labs 24H Laboratory Tests 2 10/21/18 11:52: Bedside Glucose (Misc Panel) 221H 10/21/18 13:02: Vitamin B12 Level 1170, Folate 6.6 10/21/18 16:30: Bedside Glucose (Misc Panel) 209H 10/21/18 20:07: Bedside Glucose (Misc Panel) 212H 10/22/18 05:33: Immature Granulocyte % (Auto) 0.6, White Blood Count 13.1H, Red Blood Count 3.81L, Hemoglobin 9.9L, Hematocrit 28.8L, Mean Corpuscular Volume 75.6L, Mean Corpuscular Hemoglobin 26.0L, Mean Corpuscular Hemoglobin Concent 34.4, Red Cell Distribution Width 14.5, Platelet Count 447, Neutrophils (%) (Auto) 69.7H, Lymphocytes (%) (Auto) 13.7L, Monocytes (%) (Auto) 14.7H, Eosinophils (%) (Auto) 1.1, Basophils (%) (Auto) 0.2, Neutrophils # (Auto) 9.1H, Lymphocytes # (Auto) 1.8, Monocytes # (Auto) 1.9H, Eosinophils # (Auto) 0.1, Basophils # (Auto) 0.0, Nucleated Red Blood Cells % (auto) 0.0, Anion Gap 4L, Glomerular Filtration Rate > 60.0, Blood Urea Nitrogen 11, Creatinine 0.64L, Sodium Level 136, Potassium Level 4.1, Chloride Level 100, Carbon Dioxide Level 32, Calcium Level 10.5H CBC/BMP Laboratory Tests 10/22/18 05:33 Red Blood Count 3.81 L, Mean Corpuscular Volume 75.6 L, Mean Corpuscular Hemoglobin 26.0 L, Mean Corpuscular Hemoglobin Concent 34.4, Red Cell Distribution Width 14.5, Neutrophils (%) (Auto) 69.7 H, Lymphocytes (%) (Auto) 13.7 L, Monocytes (%) (Auto) 14.7 H, Eosinophils (%) (Auto) 1.1, Basophils (%) (Auto) 0.2, Neutrophils # (Auto) 9.1 H, Lymphocytes # (Auto) 1.8, Monocytes # (Auto) 1.9 H, Eosinophils # (Auto) 0.1, Basophils # (Auto) 0.0, Calcium Level 10.5 H FSBS Laboratory Tests Test 10/21/18 11:52 10/21/18 16:30 10/21/18 20:07 Range/Units Bedside Glucose (Misc Panel) 221 209 212 80-115 MG/DL Discharge Medications Scheduled Amlodipine Besylate (Amlodipine Besylate) 10 Mg Tablet, 10 MG PO DAILY Aspirin (Aspir 81) 81 Mg Tablet.dr, 81 MG PO DAILY, (Reported) Atorvastatin Calcium (Atorvastatin Calcium) 40 Mg Tab, 40 MG PO DAILY, (Reported) Carvedilol (Carvedilol) 25 Mg Tablet, 12.5 MG PO BID, (Reported) Cholecalciferol (Vitamin D3) (Vitamin D3) 1,000 Unit Tab, 1,000 UNITS PO DAILY, (Reported) Insulin Glargine,Hum.rec.anlog (Lantus Solostar) 100 Unit/1 Ml Insuln.pen, 25 UNIT SC QPM Insulin Human Lispro (Novolog) 100 Unit/1 Ml Vial, 10 UNITS SC DAILY, (Reported) BEFORE MEALS Lisinopril (Lisinopril) 10 Mg Tablet, 10 MG PO QHS Metformin HCl (Metformin HCl) 1,000 Mg Tab, 1,000 MG PO BID, (Reported) [place]-3 Fatty Acids/Fish Oil (Fish Oil 1,000 mg Capsule) 1,000 Mg Cap, 2,000 MG PO BID, (Reported) Scheduled PRN Acetaminophen (Acetaminophen) 500 Mg Tablet, 1,000 MG PO Q6H PRN for PAIN, (Reported) Allergies Coded Allergies: No Known Drug Allergies (Verified Allergy, Unknown, 10/20/18) GME ATTESTATION GME ATTESTATION My faculty preceptor for this patient encounter was physically present during the encounter and was fully available. All aspects of the patient interview, examination, medical decision making process, and medical care plan development were reviewed and approved by the faculty preceptor. The faculty preceptor is aware and concurs with the plan as stated in the body of this note and will attest to such by his/her cosignature. ATTENDING NOTE I saw and evaluated the patient. I agree with the finding and the plan of care as documented in the resident's note. I agree with the resident's discharge summary . I personally spent 35 mins in counselling and coordinating the pateint's discharge with appropriate follow ups with specialist. I counselled the patient and his regarding his diagnosis, tests, follow up needed and his medications. TIN CENTENO DO October 22, 2018 09:43 SADIQ EDWARDS MD November 01, 2018 19:41
[2018-10-22] MEDS ORDERED: LISI10TA4 PO (09:51)
[2018-10-22] MEDS ORDERED: LANTINJ4 SC (09:51)
[2018-10-22] MEDS ORDERED: AMLO10TA5 PO (09:51)
[2018-10-22] MEDS ORDERED: amLODIPine 5 MG TAB PO ONE (10:15)
[2018-10-22 11:17] VITALS: BP 161/87
--- NOTE | 2018-10-26 11:42 | REP ---
Ultrasound-guided liver biopsy This procedure was performed by Felisha Roberson [facility], under the personal supervision of Dr. Perkins. The risks and benefits of the procedure were explained to the patient and informed consent was obtained both verbally and written. Directly prior to the start of the procedure, a formal timeout was done in the procedure room. A lesion in the left lobe of the liver was localized using ultrasound guidance. The skin was prepped and draped in a sterile fashion. 12 ml of 1% lidocaine was used as a local anesthetic. Using ultrasound guidance a small skin vivian was made and a 19/20 gauge coaxial needle biopsy system was inserted and advanced into the liver. 5 core biopsy samples were obtained and sent to the lab. The patient tolerated the procedure well and there were no immediate complications. After the appropriate monitored convalescence the patient was discharged from the department. Reviewed by LAURA Choi 10/21/2018 04:40 P Electronically Signed by Rodríguez Perkins MD 10/26/2018 11:32 A
== END 2018-10-22 11:50 | disposition home or self-care (01) | DRG 436 ==
LOC: M ED 11:48 → M ED INP 17:17 → M MSPAV 20:51
PROVIDERS: ADMIT Internal Medicine Nephrology; ATTEND Internal Medicine Nephrology
PROC: 0FB03ZX Excision of Liver, Percutaneous Approach, Diagnostic (ICD-10-PCS; principal; 2018-10-21)
DX: C78.7 Secondary malignant neoplasm of liver and intrahepatic bile duct (principal); C79.51 Secondary malignant neoplasm of bone; N17.9 Acute kidney failure, unspecified; E86.0 Dehydration; E78.00 Pure hypercholesterolemia, unspecified; I10 Essential (primary) hypertension; E11.9 Type 2 diabetes mellitus without complications; C80.1 Malignant (primary) neoplasm, unspecified; Z79.4 Long term (current) use of insulin; Z79.82 Long term (current) use of aspirin; Z79.899 Other long term (current) drug therapy; Z87.891 Personal history of nicotine dependence

== ENCOUNTER 2018-11-01 13:02 | Outpatient (RCR) | payer OTHER ==
[~2018-11-01] VITALS: Ht 177.8 cm; Wt 99.7 kg
[~2018-11-01 13:02] MED LIST changes: -ASPI81TA26 PO; -CARV25TA PO; -INSULANT SC; -OXYC-517 PO; -PROHANCE 279.3MG/ML 15ML VIAL (A9576) As Ordered ONE; -PROHANCE 279.3MG/ML 5ML VIAL (A9576) As Ordered ONE
[2018-11-01 13:25] VITALS: BP 118/69
[2018-11-01] MEDS ORDERED: CARV25TA PO ×2 (13:41→22:03)
[2018-11-01 15:10] LABS: HEMATOCRIT 30.9 % (42.0-52.0); HEMOGLOBIN 10.1 g/dl (13.5-17.5); LYMPH % 14.2 % (24.0-44.0); MEAN CORPUSCULAR HEMOGLOBIN 26.4 pg (27.0-33.0); MEAN CORPUSCULAR HGB CONC 32.7 g/dl (32.0-36.5); MEAN CORPUSCULAR VOLUME 80.9 fl (80.0-96.0); NEUTROPHILS # 10.3 10^3/uL (1.8-7.7); NEUTROPHILS % 77.5 % (36.0-66.0); RED BLOOD COUNT 3.82 10^6/uL (4.30-6.10); WHITE BLOOD COUNT 13.3 10^3/uL (4.0-10.0)
[2018-11-01 15:29] LABS: ALBUMIN 3.3 GM/DL (3.5-5.2); BLOOD UREA NITROGEN 10 MG/DL (6-20); CARBON DIOXIDE LEVEL 25 MEQ/L (23-31); CHLORIDE LEVEL 103 MMOL/L (98-107); CREATININE FOR GFR 0.72 MG/DL (0.90-1.30); GLUCOSE, FASTING 171 MG/DL (70-105); POTASSIUM SERUM 4.6 MMOL/L (3.5-5.1); SODIUM LEVEL 136 MMOL/L (135-145); TOTAL PROTEIN 6.1 GM/DL (6.4-8.3)
[2018-11-01 15:36] LABS: GLOMERULAR FILTRATION RATE > 60.0 (>49)
[2018-11-01 15:46] LABS: INR 1.24; PROTHROMBIN TIME 15.8 SECONDS (12.1-14.4)
[2018-11-01 15:54] LABS: PROSTATIC SPECIFIC AG MONITOR 24.5 NG/ML (< 4.00)
[2018-11-01 16:34] LABS: CA19-9 TUMOR MARKER,CARBOHYDRA 67.9 U/ML (<35.0)
[2018-11-01] MEDS ORDERED: CHLO25TA PO (22:03)
[2018-11-01] MEDS ORDERED: AMLO10TA5 PO (22:03)
[2018-11-01] MEDS ORDERED: INSULANT SC (22:03)
[2018-11-01] MEDS ORDERED: OXYC-517 PO (22:03)
[2018-11-01] MEDS ORDERED: LISI10TA4 PO (22:03)
[2018-11-01] MEDS ORDERED: ASPI81TA26 PO (22:03)
--- NOTE | 2018-11-02 06:59 | MEDONC ---
MEDICAL ONCOLOGY INITIAL VISIT DATE OF SERVICE: 11/01/2018 DIAGNOSIS: Metastatic adenocarcinoma with liver and bone metastases recently diagnosed, uncertain primary. HISTORY OF PRESENT ILLNESS: Harris Parisi is a 63-year-old man with a remote smoking history, type 2 diabetes, hypertension, and elevated cholesterol who presented to the emergency room in [place] in August complaining of abdominal pain. Abdomen and pelvis CT with oral contrast only showed multiple heterogeneous low density lesions of the liver, largest 8 cm in the hepatic dome, no evidence of bowel obstruction, normal adrenal glands, and normal appearing bladder. Overall impression was of multiple ill defined low density lesions in the liver highly suggestive of hepatic metastases from adenocarcinoma... could be from colon or pancreas, no identifiable primary lesion, and colonic diverticular changes without evidence of acute diverticulitis. The patient was given Percocet, discharged home and instructed to call the GI office for GI followup. He next presented to the emergency room 10/20/2018 with overwhelming fatigue, pain and dizziness. He was found to be in acute kidney failure with creatinine of 2.0 and GFR 40, down from normal and mild hyponatremia. He was admitted, received hydration and creatinine normalized. Notable on that admission was calcium level rising to 10.5 the day of discharge. On that admission, 10/21/2018, FNA of the liver was done showing metastatic high-grade adenocarcinoma most likely metastatic to liver. Today, Harris is accompanied by his . He is quite a poor historian. For quite a while his was out of the examining room and Harris had a difficult time answering questions, pausing for a long time and unable to summon up facts. According to his and himself, this is not his baseline. He complains of severe pain involving his right posterior lumbar area and back. Repeat abdomen and pelvis CT during his recent hospitalization revealed multiple hypodense nodules in the liver compatible with diffuse metastases, no hydronephrosis, no significant lymphadenopathy. Chest CT showed no significant thoracic adenopathy or mass, but metastatic lesions involving the right 7th and left 6th ribs, as well as, T8, T9 and T12 vertebral bodies. Harris has been taking Tylenol with no effect. He completed a short course of Percocet. He reports infrequent bowel movements in the last few days. In the last 3 months, he has lost 30 pounds. PAST MEDICAL HISTORY: Hypertension, insulin-dependent type 2 diabetes and elevated cholesterol. The patient reports he has had a PSA checked at the [facility] in [place], but does not know the number. PAST SURGICAL HISTORY: Left ACL repair in 1987, right hand surgery. ALLERGIES: No known drug allergies. MEDICATIONS: - acetaminophen 500 mg 2 tablets q. 6 hours p.r.n. - amlodipine 10 mg daily - aspirin 81 mg daily - atorvastatin 40 mg daily - carvedilol 12.5 mg b.i.d. - cholecalciferol 1000 units daily - Insulin Glargine 25 units subcu q. p.m. - Insulin Lispro 10 units subcu daily pre meal - lisinopril 10 mg daily - metformin 1000 mg b.i.d. - Drumright 3 fatty acid 1000 mg tab two b.i.d. FAMILY HISTORY: Father of a brain tumor at age 47. No other malignancy in the family. SOCIAL HISTORY: Approximate 40 pack-year smoking history, stopped 2013. Alcohol two drinks a day until recently none. 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 Primary care at [facility] in [place], RODNEY Delgado. , lives with his . REVIEW OF SYSTEMS: 12 system written review completed by the patient. Positive for recent weight change, loss of appetite, increased fatigue, very bad pain, change in bowel movements. No blood in stool, increased urinary frequency, dizziness, and no falls; in addition, the patient denies blood in his stool or urine. Remainder of 12 system review negative. PHYSICAL EXAMINATION: Patient is a mildly overweight gentleman, clearly fatigued, seated in a wheelchair. He gets out of the wheelchair with difficulty and gets onto the table. Difficult to tolerate reclining on the electronic table, complains of back pain. Respiratory: Clear lungs to auscultation bilaterally anteriorly and posteriorly. No wheezes, no rales. Cardiac: S1 and S2, regular rate and rhythm. No murmur, no gallop. Abdomen: Soft, nontender, no palpable mass. No hepatomegaly or splenomegaly. Extremities: No edema. Lymph Nodes: No palpable submandibular, cervical, supraclavicular or axillary adenopathy. Musculoskeletal: No tenderness to percussion along the vertebral column, but tenderness in the right lateral anterior rib area in the lower ribs to deep palpation. Neurologic Examination: Cranial nerves II-XII grossly intact. Muscle strength 5. On upper extremity extension, there is right-sided pain to left extension against force. On the left hip flexion and extension right-sided lumbar area pain. LABS: Obtained following visit include WBC 13.3, hemoglobin 10, hematocrit 31, platelets 470, MCV 81, normal electrolytes, creatinine 0.72, glucose 171, calcium 12, albumin 3.3, AST 35, ALT 16, alk phos 369, CEA 8.7, CA19-9 68, PSA 24.5, PT 15.8, normal INR, ferritin 10/21/2018 was 2800, and total bilirubin 0.7. IMPRESSION: 63-year-old man with metastatic adenocarcinoma diffusely involving liver, focally involving skeleton, with severe low back pain and crossed positive leg and arm flexion and extension test suggestive of spinal cord compressing lesion. Widely elevated tumor markers including CEA, PSA, CA19-9. CA19-9 notably elevated to 67 or 68. Differential diagnosis of this patient's metastatic cancer includes pancreatic cancer, colon cancer and prostate cancer. Currently he is clinically in some metabolic disarray, but highest concern is for a cord compressing lesion. PLAN: 1. Stat thoracic and lumbar MRI with and without contrast to rule out cord compression. 2. Hypercalcemia. Result came back after office visit. I will direct the patient to the emergency room where he should receive hydration and admission for pain control. 3. During the visit, I prescribed oxycodone 5 mg 1-2 tablets up to three times daily with a 7-day supply. 4. If cord compression present, will start him on dexamethasone 4 mg t.i.d. and notify radiation oncology immediately. Unreviewed DD: Kathy Newman MD 11/01/2018 05:34 P DT: hilda 11/02/2018 06:04 A [facility]
--- NOTE | 2018-11-07 09:00 | RADONC ---
RADIATION ONCOLOGY CONSULTATION NOTE DATE OF CONSULTATION: 11/02/2018 CHART NUMBER: [id number]. DIAGNOSIS: Unknown primary. STAGE: IV, widely metastatic. ECOG PERFORMANCE STATUS: 4. CONSULTATION NOTE: Mr. Parisi is a 63-year-old black male with the diagnosis of widely metastatic end-stage high-grade adenocarcinoma who is presenting to us for consideration of palliative radiation therapy to his lower back for treatment of significantly painful bony metastases. HISTORY OF PRESENT ILLNESS: The patient was in his usual state of health until August of this year when he presented to our emergency room complaining of abdominal pain. Apparently, a CT scan of the abdomen and pelvis was undertaken on August 26, 2018, which showed multiple ill-defined low-density lesions in the liver, highly suggestive of hepatic metastatic disease. On 10/21/2018, the patient underwent an image-guided biopsy of his liver lesion, which showed a high-grade adenocarcinoma. It is of unknown primary origin. He has had increasing back pain, and it has become difficult to ambulate. A CT scan of the chest was done on 10/20/2018 and showed no infiltrate in either lung. There was no significant lymphadenopathy in the chest. There were, however, noted to be bony metastatic sites at T8, T9, and T12. There were also rib metastasis on the right 7th and left 6th ribs. An MRI of the T spine done 11/01/2018 showed small patchy areas of bright signal intensity from C7 through T8 consistent with small metastatic lesions. There were large rounded areas of bright signal intensity at T9, T10, T11, and T12 consistent with metastatic lesions, as well. The lesions measured approximately 2 cm in size each. There was a bright signal intensity throughout the entire L1 vertebral body, as well. An MRI of the LS spine done 11/01/2018 confirmed the above and a 2 cm lesion in the lower sacrum consisting with a metastatic disease. There were severe metastases at the L3 vertebral body and metastatic end-plate disease at L4-L5 and S1. On 11/01/2018, a CT of the pelvis was undertaken and showed a 3.5 cm lesion in the left iliac bone. The patient is now in a hospital bed under pain medications. PAST MEDICAL HISTORY: The patient's past medical history is positive for insulin-dependent type 2 diabetes and elevated cholesterol. He had a left ACL repair in 1987 and right hand surgery. ALLERGIES: The patient has no known drug allergies. FAMILY HISTORY: The patient's family history is positive for a father with the brain tumor. SOCIAL HISTORY: The patient has a 40 pack-year smoking history. He discontinued smoking in 2013. He drinks two alcoholic beverages a day. REVIEW OF SYSTEMS: The patient's review is difficult to obtain at this time since he is heavily medicated. He reports back pain, but review of systems is otherwise at this time subjectively negative. He denies nausea, vomiting, fevers, chills, night sweats, diplopia, headaches, anxiety or depression, anorexia, weight loss, visual disturbances, chest pain, urinary or bowel difficulties, bone pain, or neurological problems. PHYSICAL EXAMINATION: The patient is presenting in a stretcher and is medicated. HEENT exam is normocephalic, atraumatic. He does appear to have some periorbital edema and perhaps some slight jaundice. His lungs are generally clear to auscultation and percussion. His heart has a regular rate and rhythm. His abdomen is benign with no masses or tenderness. I do not appreciate any lymphadenopathy. His neurological exam is intact to sensory and motor. I do not appreciate any neurological deficit. His movements are limited secondary to his discomfort. ASSESSMENT: Mr. Parisi is presenting to us today with what appears to be widely metastatic high-grade adenocarcinoma of unknown primary for consideration of palliative radiation therapy for significant bone pain and metastases. Clearly, he is a candidate for this treatment, and I have so informed him. I have discussed with the patient in detail the potential benefits, as well as possible acute and chronic sequelae of external beam radiation therapy. We did discuss logistics of treatment planning, simulation, and subsequent fractionated daily radiation treatments. I have scheduled the patient for simulation today. The treatment planning can be completed today, and the patient can begin radiation tomorrow. This way, we can get two treatments in before the weekend. I will coordinate the patient's care with medical oncology. Clearly, radiation cannot be used to treat his massive liver disease. The only option that may prolong this patient's life would be some systemic options. Of course, I will defer to the expertise of our medical oncologist, Dr. Newman. In the meantime, radiation will begin to the spine to alleviate some of his pain so that we can reduce some of his pain medications. cc: MD Darcie Chamberlain MD
== END 2018-11-01 14:47 | disposition home or self-care (01) ==
LOC: M ONCM 13:02
PROVIDERS: ATTEND Internal Medicine Medical Oncology
DX: C80.1 Malignant (primary) neoplasm, unspecified (principal); C79.51 Secondary malignant neoplasm of bone; C78.7 Secondary malignant neoplasm of liver and intrahepatic bile duct; E11.9 Type 2 diabetes mellitus without complications; I10 Essential (primary) hypertension; E83.52 Hypercalcemia; E78.5 Hyperlipidemia, unspecified; Z79.899 Other long term (current) drug therapy

== ENCOUNTER 2018-11-01 20:39 | Inpatient (IN) | payer OTHER ==
[~2018-11-01] VITALS: Ht 177.8 cm; Wt 96.0 kg
[~2018-11-01 20:39] MED LIST changes: +CARV25TA PO
[2018-11-01] MEDS ORDERED: NS 1,000 ML IV ONE (21:15)
[2018-11-01] MEDS ORDERED: DEXTROSE 50% 50 ML SYRINGE IV PRN (21:45)
[2018-11-01] MEDS ORDERED: GLUCAGON FOR INJ 1 MG VIAL (J1610) SC PRN (21:45)
[2018-11-01] MEDS ORDERED: GLUCOSE 4 GM CHEW TABLET PO PRN (21:45)
[2018-11-01] MEDS ORDERED: CARV25TA PO (22:03)
[2018-11-01] MEDS ORDERED: CHLO25TA PO (22:03)
[2018-11-01] MEDS ORDERED: LISI10TA4 PO (22:03)
[2018-11-01] MEDS ORDERED: ASPI81TA26 PO (22:03)
[2018-11-01] MEDS ORDERED: OXYC-517 PO (22:03)
[2018-11-01] MEDS ORDERED: AMLO10TA5 PO (22:03)
[2018-11-01] MEDS ORDERED: INSULANT SC (22:03)
[2018-11-01] MEDS: oxyCODONE 5MG TAB PO PRN (22:17)
[2018-11-01 23:20] VITALS: BP 176/80
--- NOTE | 2018-11-01 23:22 | REPVR ---
EXAM: CT Pelvis Without Contrast, Skeletal EXAM DATE/TIME: 11/01/2018 10:43 PM CLINICAL HISTORY: 63 years old, male; Hip pain; Right hip; Additional info: Right hip pain TECHNIQUE: Imaging protocol: Axial computed tomography images of the pelvis without intravenous contrast. Exam focused on the skeletal structures. Coronal and sagittal reformatted images were created and reviewed. Radiation optimization: All CT scans at this facility use at least one of these dose optimization techniques: automated exposure control; mA and/or kV adjustment per patient size (includes targeted exams where dose is matched to clinical indication); or iterative reconstruction. COMPARISON: CT ABD PELVIS W/O CONTRAST 10/20/2018 1:24 PM FINDINGS: Reproductive: There is marked enlargement of the prostate. There is contrast within the urinary bladder. Vasculature: Atherosclerotic changes noted of the iliac arteries. Bones/joints: There are small lytic lesions of the lower sacrum. There is a prominent 3.5 CM lesion of the left iliac bone just above the left acetabulum. The proximal right and left femur appear intact. There is sclerosis and bridging osteophyte formation at the left SI joint. IMPRESSION: 1. Small metastatic lesions of the lower sacrum. 2. 3.5 CM probable metastatic lesion of the left iliac bone just above the acetabulum. Electronically signed by: Holden Paige On 11/01/2018 23:22:09 PM
[2018-11-02] MEDS: NS 1,000 ML IV SCH ×4 (00:06→21:00)
[2018-11-02] MEDS: oxyCODONE 5MG TAB PO PRN ×4 (00:08→22:10)
--- NOTE | 2018-11-02 01:19 | HPEPDOC ---
General Date of Admission November 01, 2018 at 21:36 Date of Service: November 01, 2018 Chief Complaint The patient is a 63-year-old male admitted with a reason for visit of Hypercalcemia Of Malignancy,Metastatic Adenocarino. 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 Patient complained of severe low back pain and right hip pain. The pain is constant, dull aching in nature without any radiation. The pain started in the past week after discharge from the hospital on 10/22/18. Now it has become so severe that he is having difficulty in getting out of bed, sitting up and ambulating. He denied any constipation or urinary incontinence. He denied any loss of sensation in the perineal or anal area. Pateint had MRI of thoracic and lumber spine and CT of the pelvis which shows diffuse metastasis in almost all the vertebrae and sacrum. Small metastatic lesions C7 through T8, 2. 2 cm large metastatic lesions T9-T12. Prominent metastasis L1 vertebral body and right pedicle and facet. Severe metastasis throughout the L3 vertebral body. Metastasis of the endplates L4-L5 and S1 along with degenerative changes. Metastasis at the lower sacrum. Also shows a 3.5 cm metastatic lesion in the left iliac bone. There is also thecal sac impression from disc bulge and osteophyte complex. L4 and L5 bilateral severe foraminal narrowing due to disc bulges and osteophytes. Patient's lab work showed hypercalcemia. Patient was admitted for hypercalcemia and intractable back pain with difficulty in ambulation. Home Medications Scheduled Amlodipine Besylate (Amlodipine Besylate) 10 Mg Tablet, 10 MG PO DAILY, (Reported) Aspirin (Aspirin EC) 81 Mg Tablet.dr, 81 MG PO DAILY, (Reported) Atorvastatin Calcium (Atorvastatin Calcium) 40 Mg Tab, 40 MG PO DAILY, (Rep orted) Carvedilol (Carvedilol) 25 Mg Tablet, 12.5 MG PO BID, (Reported) Chlorthalidone (Chlorthalidone) 25 Mg Tablet, 25 MG PO DAILY, (Reported) Cholecalciferol (Vitamin D3) (Vitamin D3) 1,000 Unit Tab, 1,000 UNITS PO DAILY, (Reported) Insulin Glargine (Lantus) 100 Unit/1 Ml Vial, 25 UNITS SC QHS, (Reported) Insulin Human Lispro (Novolog) 100 Unit/1 Ml Vial, 10 UNITS SC AC, (Reported) Lisinopril (Lisinopril) 10 Mg Tablet, 10 MG PO QHS, (Reported) Metformin HCl (Metformin HCl) 1,000 Mg Tab, 1,000 MG PO BID, (Reported) [place]-3 Fatty Acids/Fish Oil (Fish Oil 1,000 mg Capsule) 1,000 Mg Cap, 2,000 MG PO BID, (Reported) Scheduled PRN Acetaminophen (Acetaminophen) 500 Mg Tablet, 1,000 MG PO Q6H PRN for PAIN, (Reported) Oxycodone HCl (Oxycodone HCl) 5 Mg Tablet, 5 MG PO TID PRN for PAIN, (Reported) CAN TAKE A SECOND TABLET PER DOSE Allergies Coded Allergies: No Known Drug Allergies (Verified Allergy, Unknown, 10/20/18) Past Medical History Medical History Diffuse metastatic lesions in liver, ribs and vertebrae with unknown primary found to be metastatic poorly differentiated adenocarcinoma from liver lesion biopsy, Insulin-dependent diabetes mellitus type 2, Hypertension, Hypercholesterolemia Surgical History 1. Left ACL repair, status post injury, 1987 2. 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 ETOH: Patient reports history of 2 beers nightly Illicit drug use: Patient reports history of occasional marijuana use Other relevant social factors: Patient is a [facility] History Current/History of A-Fib/PAF?: No Review of Systems Constitutional: Reports: Weakness, Fatigue, Weight Loss; Denies: Chills, Fever, Night Sweats Eyes: Denies: Pain, Vision change ENT: Denies: Head Aches, Ear Pain, Dysphagia Skin: Denies: Rash, Lesions, Breakdown Pulmonary: Denies: Dyspnea, Cough Cardiovascular: Reports: Chest Pain Gastrointestinal: Denies: Nausea, Vomiting, Abdominal Pain, Diarrhea Genitourinary: Denies: Dysuria, Frequency, Incontinence, Retention Hematologic: Denies: Bruising, Bleeding Excessively Musculoskeletal: Reports: Back Pain Neurological: Reports: Weakness Psych: Reports: Anxiety; Denies: Memory Issues Physical Examination General Exam: Positive: Alert, Cooperative, Moderate Distress (because of back and hip pain) Eye Exam: Positive: PERRLA, Conjunctiva & lids normal, EOMI; Negative: Sclera icteric ENT Exam: Positive: Atraumatic, Mucous membr. moist/pink, Pharynx Normal Neck Exam: Positive: Supple Chest Exam: Positive: Clear to auscultation, Normal air movement Heart Exam: Positive: Rate Normal, Regular Rhythm, Normal S1, Normal S2; Negative: Murmurs, Rubs Telemetry: Positive: No significant arrhythmia Abdomen Exam: Positive: Normal bowel sounds, Soft; Negative: Tenderness, Hepatospenomegaly Extremity Exam: Positive: Normal pulses; Negative: Clubbing, Cyanosis, Edema Skin Exam: Positive: Nl turgor and temperature; Negative: Breakdown, Lesion Neuro Exam: Positive: Normal Speech, Normal Tone, Other (decreased DTRs in both the lower extremities. Planters down going.) Psych Exam: Positive: Memory Intact, Oriented x 3 Vital Signs Vital Signs Date Time Temp Pulse Resp B/P (MAP) Pulse Ox O2 Delivery O2 Flow Rate FiO2 11/01/18 22:17 16 11/01/18 21:59 68 168/77 (107) 94 Room Air 11/01/18 20:42 98.7 Assessment/Plan 63 year old male with PMH of Diffuse metastatic lesions in liver, ribs and vertebrae with unknown primary found to be metastatic poorly differentiated adenocarcinoma from liver lesion biopsy, Insulin-dependent diabetes mellitus type 2, Hypertension, Hypercholesterolemia was sent in from the oncologist's office for hypercalcemia. Patient complained of severe low back pain and right hip pain. The pain is constant, dull aching in nature without any radiation. The pain started in the past week after discharge from the hospital on 10/22/18. Now it has become so severe that he is having difficulty in getting out of bed, sitting up and ambulating. He denied any constipation or urinary incontinence. He denied any loss of sensation in the perineal or anal area. Patient had MRI of thoracic and lumber spine and CT of the pelvis which shows diffuse metastasis in almost all the vertebrae and sacrum. Small metastatic lesions C7 through T8, 2. 2 cm large metastatic lesions T9-T12. Prominent metastasis L1 vertebral body and right pedicle and facet. Severe metastasis throughout the L3 vertebral body. Metastasis of the endplates L4-L5 and S1 along with degenerative changes. Metastasis at the lower sacrum. Also shows a 3.5 cm metastatic lesion in the left iliac bone. There is also thecal sac impression from disc bulge and osteophyte complex. L4 and L5 bilateral severe foraminal narrowing due to disc bulges and osteophytes. Patient's lab work showed hypercalcemia. Patient was admitted for hypercalcemia and intractable back pain with difficulty in ambulation. Hypercalcemia of malignancy will give IVF, if becomes overloaded will give lasix will also give calcitonin. pamidronate tomorrow. check ionized calcium Metastatic adenocarcinoma with mets to liver ribs, vertebrae, iliac bone source yet undetermined. PSA elevated, Ca 19-9 elevated, CEA elevated. as per oncology Possible consultation with radiation oncology. consult oncology if needed. Pain control with oxycodone. Diabetes will give lispro sliding scale as patient has poor appetite and as been loosing weight will reduce dose of long acting insulin. Hypertension continue home meds except for chlorthalidone. Hypercholesterolemia continue statin. DVT prophylaxis ordered. Plan / VTE VTE Prophylaxis Ordered?: Yes SADIQ EDWARDS MD November 01, 2018 23:48
[2018-11-02] MEDS: LISINOPRIL 10 MG TAB PO SCH ×2 (01:58→21:13)
[2018-11-02] MEDS: CARVedilol 12.5 MG TAB PO SCH ×3 (01:59→21:13)
[2018-11-02] MEDS: CALCITONIN SALMON (MIACALCIN) 400INTERNATIONAL UNITS/2ML INJ (J0630) SQ SCH ×2 (01:59→14:17)
[2018-11-02 04:00] VITALS: BP 146/68
[2018-11-02 05:43] LABS: BASO % 0.2 % (0.0-1.0); EOS # 0.1 10^3/uL (0.0-0.50); EOS % 0.7 % (0.0-3.0); HEMOGLOBIN 9.3 g/dl (13.5-17.5); LYMPH # 1.7 10^3/uL (1.5-4.5); LYMPH % 10.7 % (24.0-44.0); MEAN CORPUSCULAR HEMOGLOBIN 24.7 pg (27.0-33.0); MEAN CORPUSCULAR HGB CONC 33.2 g/dl (32.0-36.5); MEAN CORPUSCULAR VOLUME 74.3 fl (80.0-96.0); MONO % 13.5 % (0.0-5.0); NEUTROPHILS # 11.9 10^3/uL (1.8-7.7); NEUTROPHILS % 74.1 % (36.0-66.0); PLATELET COUNT, AUTOMATED 426 10^3/uL (150-450); RED BLOOD COUNT 3.77 10^6/uL (4.30-6.10)
[2018-11-02 06:00] LABS: BLOOD UREA NITROGEN 9 MG/DL (7-18); CARBON DIOXIDE LEVEL 27 MEQ/L (21-32); CHLORIDE LEVEL 106 MEQ/L (98-107); CREATININE FOR GFR 0.67 MG/DL (0.70-1.30); GLOMERULAR FILTRATION RATE > 60.0 (>49); GLUCOSE, FASTING 168 MG/DL (70-100); POTASSIUM SERUM 5.1 MEQ/L (3.5-5.1); SODIUM LEVEL 141 MEQ/L (136-145)
[2018-11-02 06:19] LABS: MONO # 2.2 10^3/uL (0.0-0.8)
[2018-11-02 07:47] VITALS: BP 128/60
--- NOTE | 2018-11-02 09:58 | IPNPDOC ---
Date Seen The patient was seen on 11/02/18. Progress Note SUBJECTIVE: Patient was seen and examined this morning. He currently complaints of pain on the right side of his hip and lower back. This is a chronic issue and consistent with his metastatic disease. He denies being in any more significant pain. OBJECTIVE PHYSICAL EXAMINATION: VITAL SIGNS: Please see below. GENERAL: Awake, alert, and oriented. He appears in no acute distress. Lying in bed comfortably HEENT: Atrumatic normocephalic. Eyes are nonicteric. Trachea is midline. Dentition is poor CARDIOVASCULAR: Normal S1, S2. Regular rate and rhythm. No clicks rubs or murmurs RESPIRATORY: Clear vesicular breath sounds bilaterally with good respiratory effort. No wheezes, rhonchi, or rales ABDOMINAL: Soft, distended. Nontender to palpation throughout. No rebound tenderness or guarding. Positive bowel sounds throughout EXTREMITIES: No edema. Full and equal pulses in bilateral upper and lower extremities NEUROLOGICAL: No focal neurological deficits PSYCHOLOGICAL: Mood and affect appropriate for situation LABORATORY DATA, IMAGING STUDIES, MICROBIOLOGY: Please see below. DVT prophylaxis ordered?: YES ASSESSMENT AND PLAN: Patient is a 63 year old male with a past medical history significant for unknown primary malignancy with metastasisa to the liver, ribs, and vertabrae, IDDM, HTN, and hypercholesterolemia who presented to the [facility] ER after being found to have hypercalcemia at the Oncology office. Patient had also complained on worsening pain in his low back and right hip. The patient was admitted for intractable pain related to his malignancy and hypercalcemia PROBLEMS: 1. Hypercalcemia of Malignancy -Patient is mildy hypercalcemic. He has received IV fluids. He has been started on Pamidronate. -Will monitor for improvement 2. Metastatic Adenocarinoma to liver, ribs, vertabrae and pelvis -No known primary has been identified -Pain control adequate with oxycodone -Oncology consultation has been placed -Radiation Oncology consultation placed 3. IDDM -Patient is currently on sliding scale insulin -Levemir 10 units SC daily 4. HTN -Continue home medications -Hold Chlorthalidone due to hypercalcemia 5. Hypercholesterolemia -Continue Statin 6. DVT prophylaxis -Heparin SQ A-FIB/CHADSVASC A-FIB History Current/History of A-Fib/PAF?: No VS, I&O, 24H, Fishbone Vital Signs/I&O Vital Signs Date Time Temp Pulse Resp B/P (MAP) Pulse Ox O2 Delivery O2 Flow Rate FiO2 11/02/18 07:47 97.0 65 19 128/60 (82) 96 11/01/18 21:59 Room Air I&O- Last 24 Hours up to 6 AM 11/02/18 06:00 Intake Total 2545 ml Output Total 1430 ml Balance 1115 ml Laboratory Data 24H LABS Laboratory Tests 2 11/02/18 01:04: Bedside Glucose (Misc Panel) 141H 11/02/18 01:38: Whole Blood Ionized Calcium 6.2H 11/02/18 05:20: Whole Blood Ionized Calcium 6.0H, Immature Granulocyte % (Auto) 0.8, White Blood Count 16.0H, Red Blood Count 3.77L, Hemoglobin 9.3L, Hematocrit 28.0L, Mean Corpuscular Volume 74.3L, Mean Corpuscular Hemoglobin 24.7L, Mean Corpuscular Hemoglobin Concent 33.2, Red Cell Distribution Width 15.3H, Platelet Count 426, Neutrophils (%) (Auto) 74.1H, Lymphocytes (%) (Auto) 10.7L, Monocytes (%) (Auto) 13.5H, Eosinophils (%) (Auto) 0.7, Basophils (%) (Auto) 0.2, Neutrophils # (Auto) 11.9H, Lymphocytes # (Auto) 1.7, Monocytes # (Auto) 2.2H, Eosinophils # (Auto) 0.1, Basophils # (Auto) 0.0, Nucleated Red Blood Cells % (auto) 0.0, Anion Gap 8, Glomerular Filtration Rate > 60.0, Blood Urea Nitrogen 9, Creatinine 0.67L, Sodium Level 141, Potassium Level 5.1, Chloride Level 106, Carbon Dioxide Level 27, Calcium Level 11.0H 11/02/18 05:37: Bedside Glucose (Misc Panel) 180H CBC/BMP Laboratory Tests 11/02/18 05:20 Red Blood Count 3.77 L, Mean Corpuscular Volume 74.3 L, Mean Corpuscular Hemoglobin 24.7 L, Mean Corpuscular Hemoglobin Concent 33.2, Red Cell Distribution Width 15.3 H, Neutrophils (%) (Auto) 74.1 H, Lymphocytes (%) (Auto) 10.7 L, Monocytes (%) (Auto) 13.5 H, Eosinophils (%) (Auto) 0.7, Basophils (%) (Auto) 0.2, Neutrophils # (Auto) 11.9 H, Lymphocytes # (Auto) 1.7, Monocytes # (Auto) 2.2 H, Eosinophils # (Auto) 0.1, Basophils # (Auto) 0.0, Calcium Level 11.0 H GME ATTESTATION GME ATTESTATION My faculty preceptor for this patient encounter was physically present during the encounter and was fully available. All aspects of the patient interview, examination, medical decision making process, and medical care plan development were reviewed and approved by the faculty preceptor. The faculty preceptor is aware and concurs with the plan as stated in the body of this note and will atte st to such by his/her cosignature. ATTENDING NOTE Patient seen and examined at bedside Case discussed with resident physician Patient probably needs a radiation oncology consultation Radiation oncology was contacted and informed regarding the consult Also spoke with Dr. Mclaughlin and case discussed CARMELA KELLY DO November 02, 2018 09:58 NATALY GARZON MD November 03, 2018 07:24
[2018-11-02] MEDS: LEVEMIR (INSULIN DETEMIR) 1 UNITS/0.01ML SC SCH (10:00)
[2018-11-02] MEDS ORDERED: PAMIDRONATE DISODIUM FOR INJ 60 MG in D5W 1,000 ML IV ONE (10:00)
[2018-11-02] MEDS: HumaLOG INSULIN (NovoLOG) PER UNIT SC SCH ×4 (10:01→23:48)
[2018-11-02] MEDS: ASPIRIN 81 MG ENTERIC TAB PO SCH (10:02)
[2018-11-02] MEDS: HEPARIN SOD (PORCINE) 5000 UNITS/ML VIAL SC SCH ×2 (10:02→21:14)
[2018-11-02] MEDS: ATORVASTATIN 20 MG TAB PO SCH (10:02)
[2018-11-02] MEDS: amLODIPine 10 MG TAB PO SCH (10:03)
[2018-11-02 11:53] VITALS: BP 159/73
[2018-11-02 16:37] VITALS: BP 160/73
[2018-11-02 19:33] LABS: IMMUNOGLOBULIN G 1010 MG/DL (681-1648); IMMUNOGLOBULIN M 50.6 MG/DL (40-230); TOTAL PROTEIN 6.2 GM/DL (6.4-8.2)
[2018-11-02 20:00] VITALS: BP 168/70
[2018-11-02 23:59] VITALS: BP 148/86
[2018-11-03] MEDS: CALCITONIN SALMON (MIACALCIN) 400INTERNATIONAL UNITS/2ML INJ (J0630) SQ SCH ×2 (00:48→12:42)
[2018-11-03 04:00] VITALS: BP 176/82
[2018-11-03] MEDS: NS 1,000 ML IV SCH (04:44)
[2018-11-03] MEDS: oxyCODONE 5MG TAB PO PRN ×3 (04:52→18:50)
[2018-11-03 05:03] LABS: BASO % 0.1 % (0.0-1.0); EOS % 0.1 % (0.0-3.0); HEMATOCRIT 27.9 % (42.0-52.0); HEMOGLOBIN 9.5 g/dl (13.5-17.5); LYMPH # 1.5 10^3/uL (1.5-4.5); LYMPH % 7.8 % (24.0-44.0); MEAN CORPUSCULAR HGB CONC 34.1 g/dl (32.0-36.5); MEAN CORPUSCULAR VOLUME 73.4 fl (80.0-96.0); MONO # 1.4 10^3/uL (0.0-0.8); MONO % 6.9 % (0.0-5.0); NEUTROPHILS # 16.6 10^3/uL (1.8-7.7); NEUTROPHILS % 84.6 % (36.0-66.0); PLATELET COUNT, AUTOMATED 395 10^3/uL (150-450); WHITE BLOOD COUNT 19.6 10^3/uL (4.0-10.0)
[2018-11-03 05:25] LABS: BLOOD UREA NITROGEN 8 MG/DL (7-18); CALCIUM LEVEL 9.5 MG/DL (8.8-10.2); CARBON DIOXIDE LEVEL 27 MEQ/L (21-32); CHLORIDE LEVEL 106 MEQ/L (98-107); CREATININE FOR GFR 0.56 MG/DL (0.70-1.30); GLOMERULAR FILTRATION RATE > 60.0 (>49); GLUCOSE, FASTING 190 MG/DL (70-100); SODIUM LEVEL 140 MEQ/L (136-145)
[2018-11-03] MEDS: HumaLOG INSULIN (NovoLOG) PER UNIT SC SCH ×4 (07:44→20:28)
[2018-11-03 08:00] VITALS: BP 154/64
[2018-11-03] MEDS: ASPIRIN 81 MG ENTERIC TAB PO SCH (09:23)
[2018-11-03] MEDS: CARVedilol 12.5 MG TAB PO SCH ×2 (09:23→21:20)
[2018-11-03] MEDS: ATORVASTATIN 20 MG TAB PO SCH (09:23)
[2018-11-03] MEDS: HEPARIN SOD (PORCINE) 5000 UNITS/ML VIAL SC SCH ×2 (09:24→21:21)
[2018-11-03] MEDS: LEVEMIR (INSULIN DETEMIR) 1 UNITS/0.01ML SC SCH (09:24)
[2018-11-03] MEDS: amLODIPine 10 MG TAB PO SCH (09:24)
--- NOTE | 2018-11-03 09:48 | IPNPDOC ---
Date Seen The patient was seen on 11/03/18. Progress Note SUBJECTIVE: Patient was seen and examined this morning. He continues to have pain on his right side which is consistent with his metastatic disease. He has received radiation therapy with Radiation Oncology. There have been no adverse events reported overnight. OBJECTIVE PHYSICAL EXAMINATION: VITAL SIGNS: Please see below. GENERAL: Awake, alert, and oriented. Appears in no acute distress. Lying in bed. HEENT:Atrumatic, normocephalic. Eyes are nonicteric. Trachea is midline. Mucous membranes are pink and moist. Dentition is fair CARDIOVASCULAR: Normal S1, S2. Regular rate and rhythm. No clicks, rubs, or murmurs RESPIRATORY: Clear vesicular breath sounds bilaterally with good respiratory effort. No wheezes, rhonchi or rales ABDOMINAL: Soft, nondistended. Nontender to palpation in all 4 quadrants. No rebound tenderness or guarding. positive bowel sounds EXTREMITIES: No edema. Full and equal pulses in bilateral upper and lower extremities NEUROLOGICAL: No focal neurological deficits PSYCHOLOGICAL: Mood and affect appear appropriate LABORATORY DATA, IMAGING STUDIES, MICROBIOLOGY: Please see below. DVT prophylaxis ordered?: YES ASSESSMENT AND PLAN: Patient is a 63 year old male with a past medical history significant for unknown primary malignancy with metastasisa to the liver, ribs, and vertabrae, IDDM, HTN, and hypercholesterolemia who presented to the [facility] ER after being found to have hypercalcemia at the Oncology office. Patient had also complained on worsening pain in his low back and right hip. The patient was admitted for intractable pain related to his malignancy and hypercalcemia PROBLEMS: 1. Hypercalcemia of Malignancy -Patient was mildy hypercalcemic on admission. He received Pamidronate. His calcium this morning has corrected to 9.5. Will continue to monitor 2. Metastatic Adenocarinoma to liver, ribs, vertabrae and pelvis -No known primary has been identified -Pain control adequate with oxycodone -Oncology consultation has been placed -Radiation Oncology consultation placed -Patient has received radiation yesterday. 3. IDDM -Patient is currently on sliding scale insulin -Levemir 10 units SC daily 4. HTN -Continue home medications -Hold Chlorthalidone due to hypercalcemia 5. Hypercholesterolemia -Continue Statin 6. DVT prophylaxis -Heparin SQ A-FIB/CHADSVASC A-FIB History Current/History of A-Fib/PAF?: No VS, I&O, 24H, Fishbone Vital Signs/I&O Vital Signs Date Time Temp Pulse Resp B/P (MAP) Pulse Ox O2 Delivery O2 Flow Rate FiO2 11/03/18 09:24 68 154/64 11/03/18 08:00 98.5 16 94 11/01/18 21:59 Room Air I&O- Last 24 Hours up to 6 AM 11/03/18 06:00 Intake Total 4000 ml Output Total 2025 ml Balance 1975 ml Laboratory Data 24H LABS Laboratory Tests 2 11/02/18 11:37: Bedside Glucose (Misc Panel) 245H 11/02/18 16:41: Bedside Glucose (Misc Panel) 245H 11/02/18 18:42: 11/02/18 18:44: Total Protein (PEP) 6.2L, Immunoglobulin G 1010, Immunoglobulin A 165.0, Immunoglobulin M 50.6 11/02/18 18:45: 11/02/18 22:01: Bedside Glucose (Misc Panel) 287H 11/03/18 04:49: Immature Granulocyte % (Auto) 0.5, White Blood Count 19.6H, Red Blood Count 3.80L, Hemoglobin 9.5L, Hematocrit 27.9L, Mean Corpuscular Volume 73.4L, Mean Corpuscular Hemoglobin 25.0L, Mean Corpuscular Hemoglobin Concent 34.1, Red Cell Distribution Width 15.4H, Platelet Count 395, Neutrophils (%) (Auto) 84.6H, Lymphocytes (%) (Auto) 7.8L, Monocytes (%) (Auto) 6.9H, Eosinophils (%) (Auto) 0.1, Basophils (%) (Auto) 0.1, Neutrophils # (Auto) 16.6H, Lymphocytes # (Auto) 1.5, Monocytes # (Auto) 1.4H, Eosinophils # (Auto) 0.0, Basophils # (Auto) 0.0, Nucleated Red Blood Cells % (auto) 0.0, Anion Gap 7L, Glomerular Filtration Rate > 60.0, Blood Urea Nitrogen 8, Creatinine 0.56L, Sodium Level 140, Potassium Level 5.0, Chloride Level 106, Carbon Dioxide Level 27, Calcium Level 9.5 CBC/BMP Laboratory Tests 11/03/18 04:49 Red Blood Count 3.80 L, Mean Corpuscular Volume 73.4 L, Mean Corpuscular Hemoglobin 25.0 L, Mean Corpuscular Hemoglobin Concent 34.1, Red Cell Distribution Width 15.4 H, Neutrophils (%) (Auto) 84.6 H, Lymphocytes (%) (Auto) 7.8 L, Monocytes (%) (Auto) 6.9 H, Eosinophils (%) (Auto) 0.1, Basophils (%) (Auto) 0.1, Neutrophils # (Auto) 16.6 H, Lymphocytes # (Auto) 1.5, Monocytes # (Auto) 1.4 H, Eosinophils # (Auto) 0.0, Basophils # (Auto) 0.0, Calcium Level 9.5 GME ATTESTATION GME ATTESTATION My faculty preceptor for this patient encounter was physically present during the encounter and was fully available. All aspects of the patient interview, examination, medical decision making process, and medical care plan development were reviewed and approved by the faculty preceptor. The faculty preceptor is aware and concurs with the plan as stated in the body of this note and will attest to such by his/her cosignature. ATTENDING NOTE Patient seen and examined at bedside. Case discussed with resident. Patient did receive 1 course of radiation last night Continue monitoring the progress PT has been ordered CARMELA KELLY DO November 03, 2018 09:48 NATALY GARZON MD November 03, 2018 13:53
[2018-11-03 10:12] LABS: ALBUMIN 2.63 GM/DL (3.29-5.55); ALBUMIN % 42.4 % (55.8-66.1); ALPHA-1-GLOBULIN % 11.1 % (2.9-4.9); ALPHA-1-GLOBULINS 0.69 GM/DL (0.17-0.41); ALPHA-2-GLOBULINS 1.04 GM/DL (0.42-0.99); ALPHA-2-GLOBULINS % 16.8 % (7.1-11.8); BETA-1-GLOBULINS % 6.5 % (4.7-7.2); BETA-2-GLOBULINS % 8.1 % (3.2-6.5); GAMMA GLOBULIN % 15.1 % (11.1-18.8); GAMMA GLOBULINS 0.94 GM/DL (0.65-1.58)
[2018-11-03 12:00] VITALS: BP 152/64
--- NOTE | 2018-11-03 12:29 | CR ---
MEDICAL ONCOLOGY INPATIENT CONSULTATION DATE OF SERVICE: 11/02/2018 Dr. Bowie of hospitalist service requested inpatient consult regarding Harris Parisi, a 63-year-old man, with metastatic adenocarcinoma diagnosed August 2018, admitted with 11/01/2018 with intractable pain related to extensive skeletal metastases, and hypercalcemia. HISTORY OF PRESENT ILLNESS: Mr. Parisi for the first time yesterday when he came for outpatient medical oncology visit he had a somewhat clouded sensorium, complained of severe low back pain. In August he had presented to the emergency room with abdominal pain, abdomen and pelvis CT showed extensive liver metastases, he is referred for outpatient followup with GI, but represented to the emergency room in October with dizziness. He was admitted at that point, received hydration, FNA biopsy of liver was done showing adenocarcinoma, high-grade, no non cdl driver mutation studies. Because of his severe right low lumbar back pain, and across upper and lower extremity signs suggestive of possible radicular or spinal involvement with tumor. He was sent for MRI of thoracic and lumbar spine which revealed extensive bony metastases, most prominently at L1, L3, T9-T12 with a 2 cm large metastatic lesion at that site. When calcium return to 12 on albumin 3.1 he was referred to the emergency room for treatment of hypercalcemia and cancer related pain. Today he is reports feeling somewhat better. Pain control by oxycodone, but running out he says before the 6-hour time. I encouraged him to request more pain meds. He is written for 5 mg for moderate pain, 10 mg for severe pain. He was started on dexamethasone 4 mg every 12 hours and radiation oncology has been consulted with a plan to start palliative radiation to some of spinal sites tomorrow. Labs today reveal persistent leukocytosis, anemia, microcytosis and elevated calcium with ionized calcium 6. Pamidronate was given. Tumor markers yesterday were elevated in a nonspecific way: CEA 8.7, CA19-9 67, PSA 24. In the setting of hypercalcemia the differential diagnosis may narrow down to prostate cancer or colon cancer, possibly pancreatic cancer but notably no obvious mass on abdomen and pelvis imaging. At the bedside Mr. Parisi is accompanied by his . He is reclining and we talked about his cancer. I explained he has very advanced cancer, incurable and perhaps a short time to live. First steps will be palliate to his severe pain. Then if he can tolerate treatment, possibly systemic chemotherapy or immunotherapy if markers such as MMR testing show susceptibility to immunotherapy. PAST MEDICAL HISTORY: Hypertension, type 2 diabetes, elevated cholesterol. PAST SURGICAL HISTORY: ACL repair. Hand surgery. ALLERGIES: No known drug allergies. MEDICATIONS: Reviewed. Current pain management with oxycodone 5 mg every 6 hours as needed pain, oxycodone 10 mg every 6 hours severe pain and dexamethasone 4 mg twice a day. FAMILY HISTORY: Notable for father who of brain cancer in his 40s. SOCIAL HISTORY: Patient with 40 pack-year smoking history, stopped in 2013. Alcohol daily until recently employed at [employer] in [employer], , lives with his , grown children not in the area. REVIEW OF SYSTEMS: Notable for some persistent pain but much much better versus yesterday. The patient is somewhat deliberate and slow in his responses possibly reflecting hypercalcemia effect and complete 12 system review of systems was avoided today. Vital signs temperature 99.3, blood pressure 160/73, heart rate 66, respiratory 19, O2 sat 97% on room air. Remainder of physical exam deferred. LABORATORY DATA: As noted above. IMPRESSION: Metastatic adenocarcinoma, non cdl driver mutation and MMR, and PD-L1 status unknown with diffuse liver metastases, widespread skeletal metastases, significant right lower lumbar pain in an approximate T12-L1 distribution. No evidence of cord compression but some thecal sac impingement noted on CT. Pain moderately well controlled with some breakthrough prognosis poor without treatment. PLAN: 1. Agree completely with palliative radiation up front. 2. I will request MMR, PD-L1, PSA and other testing on existing tissue to try to sort out possible primary. 3. I have ordered SPEP, UPEP, serum free light chains, LDH and serum immunofixation. While the overall picture is not consistent with multiple myeloma because of liver metastases the hypercalcemia and anemia could be associated with a secondary malignant process. We will follow closely. [facility]
[2018-11-03 15:00] LABS: URINE TOTAL PROTEIN 40.5 MG/DL (0-12)
[2018-11-03 16:30] VITALS: BP 144/72
[2018-11-03 20:00] VITALS: BP 143/67
[2018-11-03] MEDS: LISINOPRIL 10 MG TAB PO SCH (21:21)
[2018-11-03 23:59] VITALS: BP 143/67
[2018-11-04] MEDS: CALCITONIN SALMON (MIACALCIN) 400INTERNATIONAL UNITS/2ML INJ (J0630) SQ SCH ×2 (00:28→12:47)
[2018-11-04 04:00] VITALS: BP_DIAS 148
[2018-11-04] MEDS: oxyCODONE 5MG TAB PO PRN ×2 (04:01→11:07)
[2018-11-04 05:01] LABS: BASO % 0.1 % (0.0-1.0); EOS % 0.1 % (0.0-3.0); HEMATOCRIT 29.2 % (42.0-52.0); HEMOGLOBIN 9.9 g/dl (13.5-17.5); LYMPH # 1.4 10^3/uL (1.5-4.5); LYMPH % 6.8 % (24.0-44.0); MEAN CORPUSCULAR HGB CONC 33.9 g/dl (32.0-36.5); MEAN CORPUSCULAR VOLUME 73.7 fl (80.0-96.0); MONO # 1.3 10^3/uL (0.0-0.8); MONO % 6.1 % (0.0-5.0); NEUTROPHILS # 17.7 10^3/uL (1.8-7.7); NEUTROPHILS % 86.5 % (36.0-66.0); PLATELET COUNT, AUTOMATED 426 10^3/uL (150-450); RED BLOOD COUNT 3.96 10^6/uL (4.30-6.10); WHITE BLOOD COUNT 20.5 10^3/uL (4.0-10.0)
[2018-11-04 05:23] LABS: BLOOD UREA NITROGEN 11 MG/DL (7-18); CARBON DIOXIDE LEVEL 25 MEQ/L (21-32); CHLORIDE LEVEL 104 MEQ/L (98-107); CREATININE FOR GFR 0.52 MG/DL (0.70-1.30); GLOMERULAR FILTRATION RATE > 60.0 (>49); GLUCOSE, FASTING 150 MG/DL (70-100); POTASSIUM SERUM 4.5 MEQ/L (3.5-5.1); SODIUM LEVEL 138 MEQ/L (136-145)
[2018-11-04 07:51] VITALS: BP 140/68
[2018-11-04] MEDS: HEPARIN SOD (PORCINE) 5000 UNITS/ML VIAL SC SCH ×2 (08:06→20:52)
[2018-11-04] MEDS: HumaLOG INSULIN (NovoLOG) PER UNIT SC SCH ×4 (08:07→20:53)
[2018-11-04] MEDS: ATORVASTATIN 20 MG TAB PO SCH (08:07)
[2018-11-04] MEDS: ASPIRIN 81 MG ENTERIC TAB PO SCH (08:07)
[2018-11-04] MEDS: LEVEMIR (INSULIN DETEMIR) 1 UNITS/0.01ML SC SCH (08:07)
[2018-11-04] MEDS: CARVedilol 12.5 MG TAB PO SCH ×2 (08:08→20:52)
[2018-11-04] MEDS: amLODIPine 10 MG TAB PO SCH (08:08)
--- NOTE | 2018-11-04 09:57 | IPNPDOC ---
Date Seen The patient was seen on 11/04/18. Progress Note SUBJECTIVE: Patient was seen and examined this morning. He states that his pain is under control with medication. He had worked with physical therapy. He noted that last night when eating dinner he had some difficulty swallowing. He denied feeling like he was choking but stated that he felt like his food could not go down. He otherwise has no complaints. OBJECTIVE PHYSICAL EXAMINATION: VITAL SIGNS: Please see below. GENERAL: Awake, alert, and oriented. Appears in no acute distress. Lying comfortably in bed eating breakfast HEENT: Atraumatic normocephalic. Eyes are nonicteric. Trachea is midline. Dentition is poor. CARDIOVASCULAR: Normal S1, S2. Regular rate and rhythm. No clicks, rubs, or murmurs RESPIRATORY: Clear vesicular breath sounds bilaterally with good respiratory effort. No wheezes, rhonchi, or rales ABDOMINAL: soft, nondistended. Nontender to palpation in all 4 quadrants. No rebound tenderness or guarding. Positive bowel sounds EXTREMITIES: No edema. Full and equal pulses in bilateral upper and lower extremities NEUROLOGICAL: No focal neurological deficits PSYCHOLOGICAL: Mood and affect appear appropriate LABORATORY DATA, IMAGING STUDIES, MICROBIOLOGY: Please see below. DVT prophylaxis ordered?: YES ASSESSMENT AND PLAN: Patient is a 63 year old male with a past medical history significant for unknown primary malignancy with metastasisa to the liver, ribs, and vertabrae, IDDM, HTN, and hypercholesterolemia who presented to the [facility] ER after being found to have hypercalcemia at the Oncology office. Patient had also complained on worsening pain in his low back and right hip. The patient was admitted for intractable pain related to his malignancy and hypercalcemia PROBLEMS: 1. Hypercalcemia of Malignancy -Patient was mildy hypercalcemic on admission. He received Pamidronate with correction in his calcium -Will continue to monitor. 2. 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 -Pain control adequate with oxycodone -Oncology consultation has been placed help greatly appreciated -Radiation Oncology consultation placed help greatly appreciated -Patient is planned to receive radiation therapy today 3. IDDM -Patient is currently on sliding scale insulin -Levemir 10 units SC daily 4. HTN -Continue home medications -Hold Chlorthalidone due to hypercalcemia -Currently mildly elevated although acceptable. 5. Hypercholesterolemia -Continue Statin 6. DVT prophylaxis -Heparin SQ A-FIB/CHADSVASC A-FIB History Current/History of A-Fib/PAF?: No VS, I&O, 24H, Fishbone Vital Signs/I&O Vital Signs Date Time Temp Pulse Resp B/P (MAP) Pulse Ox O2 Delivery O2 Flow Rate FiO2 11/04/18 08:08 84 140/68 11/04/18 07:51 97.1 20 11/04/18 04:00 96 11/01/18 21:59 Room Air I&O- Last 24 Hours up to 6 AM 11/04/18 06:00 Intake Total 2070 ml Output Total 1350 ml Balance 720 ml Laboratory Data 24H LABS Laboratory Tests 2 11/03/18 11:32: Bedside Glucose (Misc Panel) 243H 11/03/18 14:09: Urine Total Protein mg/dL 40.5H 11/03/18 20:21: Bedside Glucose (Misc Panel) 125H 11/04/18 04:52: Immature Granulocyte % (Auto) 0.4, White Blood Count 20.5H, Red Blood Count 3.96L, Hemoglobin 9.9L, Hematocrit 29.2L, Mean Corpuscular Volume 73.7L, Mean Corpuscular Hemoglobin 25.0L, Mean Corpuscular Hemoglobin Concent 33.9, Red Cell Distribution Width 15.5H, Platelet Count 426, Neutrophils (%) (Auto) 86.5H, Lymphocytes (%) (Auto) 6.8L, Monocytes (%) (Auto) 6.1H, Eosinophils (%) (Auto) 0.1, Basophils (%) (Auto) 0.1, Neutrophils # (Auto) 17.7H, Lymphocytes # (Auto) 1.4L, Monocytes # (Auto) 1.3H, Eosinophils # (Auto) 0.0, Basophils # (Auto) 0.0, Nucleated Red Blood Cells % (auto) 0.0, Anion Gap 9, Glomerular Filtration Rate > 60.0, Blood Urea Nitrogen 11, Creatinine 0.52L, Sodium Level 138, Potassium Level 4.5, Chloride Level 104, Carbon Dioxide Level 25, Calcium Level 10.0 CBC/BMP Laboratory Tests 11/04/18 04:52 Red Blood Count 3.96 L, Mean Corpuscular Volume 73.7 L, Mean Corpuscular Hemoglobin 25.0 L, Mean Corpuscular Hemoglobin Concent 33.9, Red Cell Distribut ion Width 15.5 H, Neutrophils (%) (Auto) 86.5 H, Lymphocytes (%) (Auto) 6.8 L, Monocytes (%) (Auto) 6.1 H, Eosinophils (%) (Auto) 0.1, Basophils (%) (Auto) 0.1, Neutrophils # (Auto) 17.7 H, Lymphocytes # (Auto) 1.4 L, Monocytes # (Auto) 1.3 H, Eosinophils # (Auto) 0.0, Basophils # (Auto) 0.0, Calcium Level 10.0 GME ATTESTATION GME ATTESTATION My faculty preceptor for this patient encounter was physically present during the encounter and was fully available. All aspects of the patient interview, examination, medical decision making process, and medical care plan development were reviewed and approved by the faculty preceptor. The faculty preceptor is aware and concurs with the plan as stated in the body of this note and will attest to such by his/her cosignature. ATTENDING NOTE Patient seen and examined at bedside Discussed with resident physician Hypercalcemia has resolved. Patient did receive a dose of pamidronate Scheduled for radiation oncology treatments today PT evaluation appreciated CARMELA KELLY DO November 04, 2018 09:57 NATALY GARZON MD November 04, 2018 12:42
[2018-11-04 14:52] VITALS: BP 154/67
[2018-11-04] MEDS: LISINOPRIL 10 MG TAB PO SCH (20:53)
[2018-11-04 22:00] VITALS: BP 158/72
[2018-11-05 00:07] LABS: FREE KAPPA LIGHT CHAINS SERUM 25.8 mg/L (3.3-19.4); KAPPA/LAMBDA RATIO SERUM 1.52 (0.26-1.65)
[2018-11-05 06:00] VITALS: BP 138/67
[2018-11-05 06:37] LABS: BASO % 0.1 % (0.0-1.0); HEMATOCRIT 29.1 % (42.0-52.0); HEMOGLOBIN 10.1 g/dl (13.5-17.5); LYMPH # 1.1 10^3/uL (1.5-4.5); LYMPH % 5.6 % (24.0-44.0); MEAN CORPUSCULAR HEMOGLOBIN 25.3 pg (27.0-33.0); MEAN CORPUSCULAR HGB CONC 34.7 g/dl (32.0-36.5); MEAN CORPUSCULAR VOLUME 72.8 fl (80.0-96.0); MONO # 1.3 10^3/uL (0.0-0.8); MONO % 6.7 % (0.0-5.0); NEUTROPHILS # 16.9 10^3/uL (1.8-7.7); NEUTROPHILS % 86.9 % (36.0-66.0); PLATELET COUNT, AUTOMATED 473 10^3/uL (150-450); WHITE BLOOD COUNT 19.4 10^3/uL (4.0-10.0)
[2018-11-05 06:55] LABS: BLOOD UREA NITROGEN 14 MG/DL (7-18); CALCIUM LEVEL 9.7 MG/DL (8.8-10.2); CARBON DIOXIDE LEVEL 25 MEQ/L (21-32); CHLORIDE LEVEL 105 MEQ/L (98-107); CREATININE FOR GFR 0.52 MG/DL (0.70-1.30); GLOMERULAR FILTRATION RATE > 60.0 (>49); GLUCOSE, FASTING 154 MG/DL (70-100); POTASSIUM SERUM 4.4 MEQ/L (3.5-5.1); SODIUM LEVEL 139 MEQ/L (136-145)
[2018-11-05 08:51] LABS: CK-MB VALUE MASS < 1.0 NG/ML (<3.6); CPK CREATINE PHOSPHOKINASE 29 U/L (39-308); MB/CK RELATIVE INDEX 3.45 (< OR =4); TROPONIN I < 0.02 NG/ML (< 0.10)
[2018-11-05 09:15] VITALS: BP 148/78
--- NOTE | 2018-11-05 09:48 | ECGEPIP ---
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
[2018-11-05 10:20] VITALS: BP 160/72
[2018-11-05] MEDS: oxyCODONE 5MG TAB PO PRN ×2 (10:34→21:22)
[2018-11-05] MEDS: HumaLOG INSULIN (NovoLOG) PER UNIT SC SCH ×4 (10:35→20:58)
[2018-11-05] MEDS: ASPIRIN 81 MG ENTERIC TAB PO SCH (10:36)
[2018-11-05] MEDS: LEVEMIR (INSULIN DETEMIR) 1 UNITS/0.01ML SC SCH (10:36)
[2018-11-05] MEDS: ATORVASTATIN 20 MG TAB PO SCH (10:36)
[2018-11-05] MEDS: CARVedilol 12.5 MG TAB PO SCH ×2 (10:37→21:21)
[2018-11-05] MEDS: amLODIPine 10 MG TAB PO SCH (10:37)
[2018-11-05] MEDS: HEPARIN SOD (PORCINE) 5000 UNITS/ML VIAL SC SCH ×2 (10:38→21:20)
[2018-11-05 10:45] VITALS: BP 158/76
--- NOTE | 2018-11-05 12:33 | IPNPDOC ---
Date Seen The patient was seen on 11/05/18. Progress Note SUBJECTIVE: Patient was seen and examined this morning. He complained of substernal chest pain and pressure with shortness of breath this morning. He states that he thought it would resolve however it had continued for approximately 15-20 min. He denied any radiation down his arm. He was sleeping at the time and woke up from the discomfort. He otherwise had no new complaints. He states that his back pain is fairly well controlled with his current pain medications regimen OBJECTIVE PHYSICAL EXAMINATION: VITAL SIGNS: Please see below. GENERAL: Awake, alert, and oriented. Appears in no acute distress. Sitting on edge of bed. HEENT: Atraumatic normocephalic. Eyes are nonicteric. Trachea is midline. Dentition is poor. CARDIOVASCULAR: Normal S1, S2. Regular rate and rhythm. No clicks, rubs, or murmurs RESPIRATORY: Clear vesicular breath sounds bilaterally with good respiratory effort. No wheezes, rhonchi, or rales ABDOMINAL: soft, nondistended. Nontender to palpation in all 4 quadrants. No rebound tenderness or guarding. Positive bowel sounds EXTREMITIES: No edema. Full and equal pulses in bilateral upper and lower extremities NEUROLOGICAL: No focal neurological deficits PSYCHOLOGICAL: Mood and affect appear appropriate LABORATORY DATA, IMAGING STUDIES, MICROBIOLOGY: Please see below. 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 Patient had also complained on worsening pain in his low back and right hip. The patient was admitted for intractable pain related to his malignancy and hypercalcemia PROBLEMS: 1. Chest pain/SOB --patient had an episode of chest pain/pressure this morning. He stated that it lasted about 15-20 min and he was short of breath when it was occurring. He does have some reproducible pain on the left side of his chest. I feel his discomfort is likely MSK however, have ordered an EKG STAT and Cardiac Marker panel --Cardiac markers are negative. Will continue to trend -EKG did not show any acute ischemic changes. 2. Hypercalcemia of Malignancy -Patient was mildy hypercalcemic on admission. He received Pamidronate with correction in his calcium -Will continue to monitor. 3. 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 -Pain control adequate with oxycodone -Oncology consultation has been placed help greatly appreciated -Radiation Oncology consultation placed help greatly appreciated -Patient has received radiation therapy 4. IDDM -Patient is currently on sliding scale insulin -Levemir 10 units SC daily 5. HTN -Continue home medications -Hold Chlorthalidone due to hypercalcemia -Currently mildly elevated although acceptable. 6. Hypercholesterolemia -Continue Statin 7. DVT prophylaxis -Heparin SQ VS, I&O, 24H, Fishbone Vital Signs/I&O Vital Signs Date Time Temp Pulse Resp B/P (MAP) Pulse Ox O2 Delivery O2 Flow Rate FiO2 11/05/18 11:05 19 11/05/18 10:37 89 160/72 11/05/18 10:20 95.9 98 11/01/18 21:59 Room Air I&O- Last 24 Hours up to 6 AM 11/05/18 06:00 Intake Total 780 ml Output Total 1600 ml Balance -820 ml Laboratory Data 24H LABS Laboratory Tests 2 11/04/18 16:54: Bedside Glucose (Misc Panel) 166H 11/04/18 20:26: Bedside Glucose (Misc Panel) 131H 11/05/18 05:41: Immature Granulocyte % (Auto) 0.7, White Blood Count 19.4H, Red Blood Count 4.00L, Hemoglobin 10.1L, Hematocrit 29.1L, Mean Corpuscular Volume 72.8L, Mean Corpuscular Hemoglobin 25.3L, Mean Corpuscular Hemoglobin Concent 34.7, Red Cell Distribution Width 15.6H, Platelet Count 473H, Neutrophils (%) (Auto) 86.9H, Lymphocytes (%) (Auto) 5.6L, Monocytes (%) (Auto) 6.7H, Eosinophils (%) (Auto) 0.0, Basophils (%) (Auto) 0.1, Neutrophils # (Auto) 16.9H, Lymphocytes # (Auto) 1.1L, Monocytes # (Auto) 1.3H, Eosinophils # (Auto) 0.0, Basophils # (Auto) 0.0, Nucleated Red Blood Cells % (auto) 0.0, Anion Gap 9, Glomerular Filtration Rate > 60.0, Blood Urea Nitrogen 14, Creatinine 0.52L, Sodium Level 139, Potassium Level 4.4, Chloride Level 105, Carbon Dioxide Level 25, Calcium Level 9.7 11/05/18 08:15: Total Creatine Kinase 29L, Creatine Kinase MB < 1.0, Creatine Kinase MB Relative Index 3.45, Troponin I < 0.02 11/05/18 11:30: Bedside Glucose (Misc Panel) 224H CBC/BMP Laboratory Tests 11/05/18 05:41 Red Blood Count 4.00 L, Mean Corpuscular Volume 72.8 L, Mean Corpuscular Hemoglobin 25.3 L, Mean Corpuscular Hemoglobin Concent 34.7, Red Cell Distribution Width 15.6 H, Neutrophils (%) (Auto) 86.9 H, Lymphocytes (%) (Auto) 5.6 L, Monocytes (%) (Auto) 6.7 H, Eosinophils (%) (Auto) 0.0, Basophils (%) (Auto) 0.1, Neutrophils # (Auto) 16.9 H, Lymphocytes # (Auto) 1.1 L, Monocytes # (Auto) 1.3 H, Eosinophils # (Auto) 0.0, Basophils # (Auto) 0.0, Calcium Level 9.7 GME ATTESTATION GME ATTESTATION My faculty preceptor for this patient encounter was physically present during the encounter and was fully available. All aspects of the patient interview, examination, medical decision making process, and medical care plan development were reviewed and approved by the faculty preceptor. The faculty preceptor is aware and concurs with the plan as stated in the body of this note and will attest to such by his/her cosignature. ATTENDING NOTE Patient seen and examined at bedside. at the bedside Is discussed with the resident physician Patient complaining of chest pain this morning and had EKG and troponins done which were all essentially within normal limits And is asymptomatic now. No more chest pain His calcium level is also within normal limits and he is receiving radiation therapy Patient feels slightly better after getting radiation therapy and will continue continue receiving his therapy CARMELA KELLY DO November 05, 2018 12:33 NATALY GARZON MD November 05, 2018 16:33
[2018-11-05 14:00] VITALS: BP 126/56
[2018-11-05 14:28] LABS: CK-MB VALUE MASS < 1.0 NG/ML (<3.6); CPK CREATINE PHOSPHOKINASE 32 U/L (39-308); MB/CK RELATIVE INDEX 3.12 (< OR =4); TROPONIN I < 0.02 NG/ML (< 0.10)
[2018-11-05] MEDS: CALCITONIN SALMON (MIACALCIN) 400INTERNATIONAL UNITS/2ML INJ (J0630) SQ SCH ×2 (15:15)
[2018-11-05 20:28] LABS: CK-MB VALUE MASS < 1.0 NG/ML (<3.6); CPK CREATINE PHOSPHOKINASE 28 U/L (39-308); MB/CK RELATIVE INDEX 3.57 (< OR =4); TROPONIN I < 0.02 NG/ML (< 0.10)
[2018-11-05] MEDS: LISINOPRIL 10 MG TAB PO SCH (21:20)
[2018-11-05 22:00] VITALS: BP 138/71
[2018-11-06 06:00] VITALS: BP 157/74
[2018-11-06 06:40] LABS: BASO % 0.1 % (0.0-1.0); HEMATOCRIT 29.9 % (42.0-52.0); HEMOGLOBIN 10.3 g/dl (13.5-17.5); LYMPH # 0.7 10^3/uL (1.5-4.5); LYMPH % 4.9 % (24.0-44.0); MEAN CORPUSCULAR HEMOGLOBIN 25.6 pg (27.0-33.0); MEAN CORPUSCULAR HGB CONC 34.4 g/dl (32.0-36.5); MEAN CORPUSCULAR VOLUME 74.2 fl (80.0-96.0); MONO # 0.8 10^3/uL (0.0-0.8); MONO % 5.6 % (0.0-5.0); NEUTROPHILS # 13.2 10^3/uL (1.8-7.7); NEUTROPHILS % 88.5 % (36.0-66.0); PLATELET COUNT, AUTOMATED 443 10^3/uL (150-450); RED BLOOD COUNT 4.03 10^6/uL (4.30-6.10); WHITE BLOOD COUNT 14.9 10^3/uL (4.0-10.0)
[2018-11-06 07:04] LABS: BLOOD UREA NITROGEN 13 MG/DL (7-18); CALCIUM LEVEL 9.4 MG/DL (8.8-10.2); CARBON DIOXIDE LEVEL 25 MEQ/L (21-32); CHLORIDE LEVEL 104 MEQ/L (98-107); CREATININE FOR GFR 0.54 MG/DL (0.70-1.30); GLOMERULAR FILTRATION RATE > 60.0 (>49); GLUCOSE, FASTING 202 MG/DL (70-100); POTASSIUM SERUM 4.5 MEQ/L (3.5-5.1); SODIUM LEVEL 137 MEQ/L (136-145)
[2018-11-06] MEDS: HumaLOG INSULIN (NovoLOG) PER UNIT SC SCH ×4 (07:30→21:00)
[2018-11-06] MEDS: ATORVASTATIN 20 MG TAB PO SCH (09:37)
[2018-11-06] MEDS: CARVedilol 12.5 MG TAB PO SCH ×2 (09:38→21:17)
[2018-11-06] MEDS: amLODIPine 10 MG TAB PO SCH (09:39)
[2018-11-06] MEDS: ASPIRIN 81 MG ENTERIC TAB PO SCH (09:39)
[2018-11-06] MEDS: oxyCODONE 5MG TAB PO PRN ×2 (09:39→21:18)
[2018-11-06] MEDS: LEVEMIR (INSULIN DETEMIR) 1 UNITS/0.01ML SC SCH (09:40)
[2018-11-06] MEDS: HEPARIN SOD (PORCINE) 5000 UNITS/ML VIAL SC SCH ×2 (09:40→21:18)
--- NOTE | 2018-11-06 11:06 | IPNPDOC ---
Subjective Date Seen The patient was seen on 11/06/18. Subjective Chief Complaint/HPI Patient feels much better. He wishes to go home General: Denies: ROS Unobtainable, Chills, Night Sweats, Fatigue, Malaise, Normal Appetite, Other Symptoms Constitutional: Denies: Chills, Fever, Malaise, Night Sweats, Weakness, Fatigue, Weight Loss, Lethargy, Other Eyes: Denies: Pain, Vision change, Conjunctivae inflammation, Eyelid inflammation, Redness, Other ENT: Denies: Head Aches, Ear Pain, Dysphagia, Sinus Congestion, Post Nasal Drip, Sore Throat, Epistaxis, Other Symptoms Skin: Denies: Rash, Lesions, Jaundice, Bruising, Itching, Dry, Breakdown, Nail Changes, Other Pulmonary: Denies: Dyspnea, Cough, Pleuritic Chest Pain, Other Symptoms Cardiovascular: Denies: Chest Pain, Palpitations, Orthopnea, Paroxysmal Noc. Dyspnea, Edema, Lt Headedness, Other Symptoms Gastrointestinal: Denies: Nausea, Vomiting, Abdominal Pain, Diarrhea, Constipation, Melena, Hematochezia, Other Symptoms Genitourinary: Denies: Dysuria, Frequency, Incontinence, Hematuria, Retention, Other Symptoms Hematologic: Denies: Bruising, Bleeding Excessively, Petecchia, Purpura, Enlarged Lymph Nodes, Other Hematologic Endocrine: Denies: Polydipsia, Polyphagia, Polyuria, Heat Intolerance, Cold Intolerance, Other Endocrine Sx Musculoskeletal: Denies: Neck Pain, Back Pain, Shoulder Pain, Arm Pain, Hand Pain, Leg Pain, Foot Pain, Joint Pain, Muscle Pain, Spasms, Other Symptoms Neurological: Denies: Weakness, Numbness, Incoordination, Change in speech, Confusion, Seizures, Other Symptoms Psych: Denies: Mood Normal, Anxiety, Depression, Memory Issues, Thoughts of Self Harm, Anger, Thoughts of Harming Other, Other Psych Objective Physical Examination General Exam: Positive: Alert, Cooperative, Moderate Distress (because of back and hip pain) Eye Exam: Positive: PERRLA, Conjunctiva & lids normal, EOMI; Negative: Sclera icteric ENT Exam: Positive: Atraumatic, Mucous membr. moist/pink, Pharynx Normal Neck Exam: Positive: Supple Chest Exam: Positive: Clear to auscultation, Normal air movement Heart Exam: Positive: Rate Normal, Regular Rhythm, Normal S1, Normal S2; Negative: Murmurs, Rubs Telemetry: Positive: No significant arrhythmia Abdomen Exam: Positive: Normal bowel sounds, Soft; Negative: Tenderness, Hepatospenomegaly Extremity Exam: Positive: Normal pulses; Negative: Clubbing, Cyanosis, Edema Skin Exam: Positive: Nl turgor and temperature; Negative: Breakdown, Lesion Neuro Exam: Positive: Normal Speech, Normal Tone, Other (decreased DTRs in both the lower extremities. 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 Chest pain/SOB --patient had an episode of chest pain/pressure this morning. He stated that it lasted about 15-20 min and he was short of breath when it was occurring. He does have some reproducible pain on the left side of his chest. I feel his discomfort is likely MSK however, have ordered an EKG STAT and Cardiac Marker panel --Cardiac markers are negative. Will continue to trend -EKG did not show any acute ischemic changes. 2. Hypercalcemia of Malignancy -Patient was mildy hypercalcemic on admission. He received Pamidronate with correction in his calcium -Will continue to monitor. 3. 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 -Pain control adequate with oxycodone -Oncology consultation has been placed help greatly appreciated -Radiation Oncology consultation placed help greatly appreciated -Patient has received radiation therapy and is awaiting further radiation therapy after this long weekend 4. IDDM -Patient is currently on sliding scale insulin -Levemir 10 units SC daily 5. HTN -Continue home medications -Hold Chlorthalidone due to hypercalcemia -Currently mildly elevated although acceptable. 6. Hypercholesterolemia -Continue Statin 7. DVT prophylaxis -Heparin SQ VS, I&O, 24H, Fishbone Vital Signs/I&O Vital Signs Date Time Temp Pulse Resp B/P (MAP) Pulse Ox O2 Delivery O2 Flow Rate FiO2 11/06/18 10:09 18 11/06/18 09:38 70 150/70 11/06/18 06:00 97.1 100 11/01/18 21:59 Room Air I&O- Last 24 Hours up to 6 AM 11/06/18 06:00 Intake Total 1560 ml Output Total 1150 ml Balance 410 ml Laboratory Data 24H LABS Laboratory Tests 2 11/05/18 11:30: Bedside Glucose (Misc Panel) 224H 11/05/18 12:42: Bedside Glucose (Misc Panel) 169H 11/05/18 13:53: Total Creatine Kinase 32L, Creatine Kinase MB < 1.0, Creatine Kinase MB Relative Index 3.12, Troponin I < 0.02 11/05/18 16:55: Bedside Glucose (Misc Panel) 162H 11/05/18 19:49: Total Creatine Kinase 28L, Creatine Kinase MB < 1.0, Creatine Kinase MB Relative Index 3.57, Troponin I < 0.02 11/05/18 20:20: Bedside Glucose (Misc Panel) 92 11/06/18 05:40: Immature Granulocyte % (Auto) 0.9, White Blood Count 14.9H, Red Blood Count 4.03L, Hemoglobin 10.3L, Hematocrit 29.9L, Mean Corpuscular Volume 74.2L, Mean Corpuscular Hemoglobin 25.6L, Mean Corpuscular Hemoglobin Concent 34.4, Red Cell Distribution Width 15.8H, Platelet Count 443, Neutrophils (%) (Auto) 88.5H, Lymphocytes (%) (Auto) 4.9L, Monocytes (%) (Auto) 5.6H, Eosinophils (%) (Auto) 0.0, Basophils (%) (Auto) 0.1, Neutrophils # (Auto) 13.2H, Lymphocytes # (Auto) 0.7L, Monocytes # (Auto) 0.8, Eosinophils # (Auto) 0.0, Basophils # (Auto) 0.0, Nucleated Red Blood Cells % (auto) 0.0, Anion Gap 8, Glomerular Filtration Rate > 60.0, Blood Urea Nitrogen 13, Creatinine 0.54L, Sodium Level 137, Potassium Level 4.5, Chloride Level 104, Carbon Dioxide Level 25, Calcium Level 9.4 CBC/BMP Laboratory Tests 11/06/18 05:40 Red Blood Count 4.03 L, Mean Corpuscular Volume 74.2 L, Mean Corpuscular Hemoglobin 25.6 L, Mean Corpuscular Hemoglobin Concent 34.4, Red Cell Distribution Width 15.8 H, Neutrophils (%) (Auto) 88.5 H, Lymphocytes (%) (Auto) 4.9 L, Monocytes (%) (Auto) 5.6 H, Eosinophils (%) (Auto) 0.0, Basophils (%) (Auto) 0.1, Neutrophils # (Auto) 13.2 H, Lymphocytes # (Auto) 0.7 L, Monocytes # (Auto) 0.8, Eosinophils # (Auto) 0.0, Basophils # (Auto) 0.0, Calcium Level 9.4 NATALY GARZON MD November 06, 2018 11:06
[2018-11-06] MEDS: CALCITONIN SALMON (MIACALCIN) 400INTERNATIONAL UNITS/2ML INJ (J0630) SQ SCH ×2 (12:32)
[2018-11-06 14:00] VITALS: BP 125/64
[2018-11-06] MEDS: LISINOPRIL 10 MG TAB PO SCH (21:17)
[2018-11-06 22:00] VITALS: BP 140/73
[2018-11-07 06:00] VITALS: BP 156/81
[2018-11-07 06:03] LABS: BASO % 0.1 % (0.0-1.0); HEMATOCRIT 28.8 % (42.0-52.0); HEMOGLOBIN 9.9 g/dl (13.5-17.5); LYMPH # 0.8 10^3/uL (1.5-4.5); LYMPH % 4.6 % (24.0-44.0); MEAN CORPUSCULAR HGB CONC 34.4 g/dl (32.0-36.5); MEAN CORPUSCULAR VOLUME 72.7 fl (80.0-96.0); MONO % 5.5 % (0.0-5.0); NEUTROPHILS # 15.8 10^3/uL (1.8-7.7); NEUTROPHILS % 89.3 % (36.0-66.0); PLATELET COUNT, AUTOMATED 436 10^3/uL (150-450); RED BLOOD COUNT 3.96 10^6/uL (4.30-6.10); WHITE BLOOD COUNT 17.6 10^3/uL (4.0-10.0)
[2018-11-07 06:30] LABS: BLOOD UREA NITROGEN 13 MG/DL (7-18); CALCIUM LEVEL 9.3 MG/DL (8.8-10.2); CARBON DIOXIDE LEVEL 26 MEQ/L (21-32); CHLORIDE LEVEL 105 MEQ/L (98-107); CREATININE FOR GFR 0.46 MG/DL (0.70-1.30); GLOMERULAR FILTRATION RATE > 60.0 (>49); GLUCOSE, FASTING 167 MG/DL (70-100); POTASSIUM SERUM 4.6 MEQ/L (3.5-5.1); SODIUM LEVEL 137 MEQ/L (136-145)
[2018-11-07] MEDS: oxyCODONE 5MG TAB PO PRN ×3 (07:54→21:24)
[2018-11-07] MEDS: HEPARIN SOD (PORCINE) 5000 UNITS/ML VIAL SC SCH ×2 (07:54→20:08)
[2018-11-07] MEDS: ASPIRIN 81 MG ENTERIC TAB PO SCH (07:55)
[2018-11-07] MEDS: HumaLOG INSULIN (NovoLOG) PER UNIT SC SCH ×4 (07:55→20:10)
[2018-11-07] MEDS: LEVEMIR (INSULIN DETEMIR) 1 UNITS/0.01ML SC SCH (07:55)
[2018-11-07] MEDS: CARVedilol 12.5 MG TAB PO SCH ×2 (07:56→20:09)
[2018-11-07] MEDS: ATORVASTATIN 20 MG TAB PO SCH (07:56)
[2018-11-07] MEDS: amLODIPine 10 MG TAB PO SCH (07:56)
--- NOTE | 2018-11-07 10:06 | IPNPDOC ---
Subjective Date Seen The patient was seen on 11/07/18. Subjective Chief Complaint/HPI Still complaining of back pain mainly on the right side General: Denies: ROS Unobtainable, Chills, Night Sweats, Fatigue, Malaise, Normal Appetite, Other Symptoms Constitutional: Denies: Chills, Fever, Malaise, Night Sweats, Weakness, Fatigue, Weight Loss, Lethargy, Other Eyes: Denies: Pain, Vision change, Conjunctivae inflammation, Eyelid inflammation, Redness, Other ENT: Denies: Head Aches, Ear Pain, Dysphagia, Sinus Congestion, Post Nasal Drip, Sore Throat, Epistaxis, Other Symptoms Skin: Denies: Rash, Lesions, Jaundice, Bruising, Itching, Dry, Breakdown, Nail Changes, Other Pulmonary: Denies: Dyspnea, Cough, Pleuritic Chest Pain, Other Symptoms Cardiovascular: Denies: Chest Pain, Palpitations, Orthopnea, Paroxysmal Noc. Dyspnea, Edema, Lt Headedness, Other Symptoms Gastrointestinal: Denies: Nausea, Vomiting, Abdominal Pain, Diarrhea, Constipation, Melena, Hematochezia, Other Symptoms Genitourinary: Denies: Dysuria, Frequency, Incontinence, Hematuria, Retention, Other Symptoms Hematologic: Denies: Bruising, Bleeding Excessively, Petecchia, Purpura, Enlarged Lymph Nodes, Other Hematologic Endocrine: Denies: Polydipsia, Polyphagia, Polyuria, Heat Intolerance, Cold Intolerance, Other Endocrine Sx Musculoskeletal: Reports: Other Symptoms (, back pain) Neurological: Denies: Weakness, Numbness, Incoordination, Change in speech, Confusion, Seizures, Other Symptoms Psych: Denies: Mood Normal, Anxiety, Depression, Memory Issues, Thoughts of Self Harm, Anger, Thoughts of Harming Other, Other Psych Objective Physical Examination General Exam: Positive: Alert, Cooperative, Moderate Distress (because of back and hip pain) Eye Exam: Positive: PERRLA, Conjunctiva & lids normal, EOMI; Negative: Sclera icteric ENT Exam: Positive: Atraumatic, Mucous membr. moist/pink, Pharynx Normal Neck Exam: Positive: Supple Chest Exam: Positive: Clear to auscultation, Normal air movement Heart Exam: Positive: Rate Normal, Regular Rhythm, Normal S1, Normal S2; Negative: Murmurs, Rubs Telemetry: Positive: No significant arrhythmia Abdomen Exam: Positive: Normal bowel sounds, Soft; Negative: Tenderness, Hepatospenomegaly Extremity Exam: Positive: Normal pulses; Negative: Clubbing, Cyanosis, Edema Skin Exam: Positive: Nl turgor and temperature; Negative: Breakdown, Lesion Neuro Exam: Positive: Normal Speech, Normal Tone, Other (decreased DTRs in both the lower extremities. 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 Patient will get radiation tomorrow again PT and progress (2) Hypercalcemia of malignancy Status: Acute Problem Text: Resolved (3) Cancer related pain Onset Date: ~ 10/2018 Status: Acute Problem Text: As above Plan/VTE VTE Prophylaxis Ordered?: Yes VS, I&O, 24H, Fishbone Vital Signs/I&O Vital Signs Date Time Temp Pulse Resp B/P (MAP) Pulse Ox O2 Delivery O2 Flow Rate FiO2 11/07/18 08:24 17 11/07/18 07:56 62 156/81 11/07/18 06:00 96.7 98 11/01/18 21:59 Room Air I&O- Last 24 Hours up to 6 AM 11/07/18 06:00 Intake Total 1485 ml Output Total 600 ml Balance 885 ml Laboratory Data 24H LABS Laboratory Tests 2 11/06/18 11:33: Bedside Glucose (Misc Panel) 249H 11/06/18 16:45: Bedside Glucose (Misc Panel) 226H 11/06/18 20:52: Bedside Glucose (Misc Panel) 139H 11/07/18 05:34: Immature Granulocyte % (Auto) 0.5, White Blood Count 17.6H, Red Blood Count 3.96L, Hemoglobin 9.9L, Hematocrit 28.8L, Mean Corpuscular Volume 72.7L, Mean Corpuscular Hemoglobin 25.0L, Mean Corpuscular Hemoglobin Concent 34.4, Red Cell Distribution Width 15.8H, Platelet Count 436, Neutrophils (%) (Auto) 89.3H, Lymphocytes (%) (Auto) 4.6L, Monocytes (%) (Auto) 5.5H, Eosinophils (%) (Auto) 0.0, Basophils (%) (Auto) 0.1, Neutrophils # (Auto) 15.8H, Lymphocytes # (Auto) 0.8L, Monocytes # (Auto) 1.0H, Eosinophils # (Auto) 0.0, Basophils # (Auto) 0.0, Nucleated Red Blood Cells % (auto) 0.0, Anion Gap 6L, Glomerular Filtration Rate > 60.0, Blood Urea Nitrogen 13, Creatinine 0.46L, Sodium Level 137, Potassium Level 4.6, Chloride Level 105, Carbon Dioxide Level 26, Calcium Level 9.3 CBC/BMP Laboratory Tests 11/07/18 05:34 Red Blood Count 3.96 L, Mean Corpuscular Volume 72.7 L, Mean Corpuscular Hemoglobin 25.0 L, Mean Corpuscular Hemoglobin Concent 34.4, Red Cell Distribution Width 15.8 H, Neutrophils (%) (Auto) 89.3 H, Lymphocytes (%) (Auto) 4.6 L, Monocytes (%) (Auto) 5.5 H, Eosinophils (%) (Auto) 0.0, Basophils (%) (Auto) 0.1, Neutrophils # (Auto) 15.8 H, Lymphocytes # (Auto) 0.8 L, Monocytes # (Auto) 1.0 H, Eosinophils # (Auto) 0.0, Basophils # (Auto) 0.0, Calcium Level 9.3 NATALY GARZON MD November 07, 2018 10:06
[2018-11-07 14:00] VITALS: BP 143/67
[2018-11-07] MEDS: LISINOPRIL 10 MG TAB PO SCH (20:10)
[2018-11-07 22:00] VITALS: BP 153/70
[2018-11-08 05:50] LABS: BASO % 0.1 % (0.0-1.0); HEMATOCRIT 29.5 % (42.0-52.0); HEMOGLOBIN 10.2 g/dl (13.5-17.5); LYMPH # 0.7 10^3/uL (1.5-4.5); LYMPH % 4.7 % (24.0-44.0); MEAN CORPUSCULAR HEMOGLOBIN 25.8 pg (27.0-33.0); MEAN CORPUSCULAR HGB CONC 34.6 g/dl (32.0-36.5); MEAN CORPUSCULAR VOLUME 74.5 fl (80.0-96.0); MONO % 6.8 % (0.0-5.0); NEUTROPHILS # 13.2 10^3/uL (1.8-7.7); NEUTROPHILS % 87.5 % (36.0-66.0); PLATELET COUNT, AUTOMATED 444 10^3/uL (150-450); RED BLOOD COUNT 3.96 10^6/uL (4.30-6.10); WHITE BLOOD COUNT 15.1 10^3/uL (4.0-10.0)
[2018-11-08 06:00] VITALS: BP 136/64
[2018-11-08 06:19] LABS: BLOOD UREA NITROGEN 14 MG/DL (7-18); CARBON DIOXIDE LEVEL 24 MEQ/L (21-32); CHLORIDE LEVEL 104 MEQ/L (98-107); CREATININE FOR GFR 0.51 MG/DL (0.70-1.30); GLOMERULAR FILTRATION RATE > 60.0 (>49); GLUCOSE, FASTING 195 MG/DL (70-100); POTASSIUM SERUM 4.8 MEQ/L (3.5-5.1); SODIUM LEVEL 136 MEQ/L (136-145)
[2018-11-08] MEDS: HEPARIN SOD (PORCINE) 5000 UNITS/ML VIAL SC SCH ×2 (07:56→21:42)
[2018-11-08] MEDS: HumaLOG INSULIN (NovoLOG) PER UNIT SC SCH ×4 (07:57→21:00)
[2018-11-08] MEDS: LEVEMIR (INSULIN DETEMIR) 1 UNITS/0.01ML SC SCH (07:57)
[2018-11-08] MEDS: ASPIRIN 81 MG ENTERIC TAB PO SCH (07:58)
[2018-11-08] MEDS: ATORVASTATIN 20 MG TAB PO SCH (07:58)
[2018-11-08] MEDS: CARVedilol 12.5 MG TAB PO SCH ×2 (09:00→21:43)
[2018-11-08] MEDS: amLODIPine 10 MG TAB PO SCH (09:01)
[2018-11-08] MEDS: oxyCODONE 5MG TAB PO PRN ×2 (09:50→22:20)
--- NOTE | 2018-11-08 10:44 | IPNPDOC ---
Subjective Date Seen The patient was seen on 11/08/18. Subjective Chief Complaint/HPI Patient feeling better, awaiting radiation therapy treatment today General: Denies: ROS Unobtainable, Chills, Night Sweats, Fatigue, Malaise, Normal Appetite, Other Symptoms Constitutional: Denies: Chills, Fever, Malaise, Night Sweats, Weakness, Fatigue, Weight Loss, Lethargy, Other Eyes: Denies: Pain, Vision change, Conjunctivae inflammation, Eyelid inflammation, Redness, Other ENT: Denies: Head Aches, Ear Pain, Dysphagia, Sinus Congestion, Post Nasal Drip, Sore Throat, Epistaxis, Other Symptoms Skin: Denies: Rash, Lesions, Jaundice, Bruising, Itching, Dry, Breakdown, Nail Changes, Other Pulmonary: Denies: Dyspnea, Cough, Pleuritic Chest Pain, Other Symptoms Cardiovascular: Denies: Chest Pain, Palpitations, Orthopnea, Paroxysmal Noc. Dyspnea, Edema, Lt Headedness, Other Symptoms Gastrointestinal: Denies: Nausea, Vomiting, Abdominal Pain, Diarrhea, Constipa tion, Melena, Hematochezia, Other Symptoms Genitourinary: Denies: Dysuria, Frequency, Incontinence, Hematuria, Retention, Other Symptoms Hematologic: Denies: Bruising, Bleeding Excessively, Petecchia, Purpura, Enlarged Lymph Nodes, Other Hematologic Endocrine: Denies: Polydipsia, Polyphagia, Polyuria, Heat Intolerance, Cold Intolerance, Other Endocrine Sx Musculoskeletal: Denies: Neck Pain, Back Pain, Shoulder Pain, Arm Pain, Hand Pain, Leg Pain, Foot Pain, Joint Pain, Muscle Pain, Spasms, Other Symptoms Neurological: Denies: Weakness, Numbness, Incoordination, Change in speech, Confusion, Seizures, Other Symptoms Psych: Denies: Mood Normal, Anxiety, Depression, Memory Issues, Thoughts of Self Harm, Anger, Thoughts of Harming Other, Other Psych Objective Physical Examination General Exam: Positive: Alert, Cooperative, Moderate Distress (because of back and hip pain) Eye Exam: Positive: PERRLA, Conjunctiva & lids normal, EOMI; Negative: Sclera icteric ENT Exam: Positive: Atraumatic, Mucous membr. moist/pink, Pharynx Normal Neck Exam: Positive: Supple Chest Exam: Positive: Clear to auscultation, Normal air movement Heart Exam: Positive: Rate Normal, Regular Rhythm, Normal S1, Normal S2; Negative: Murmurs, Rubs Telemetry: Positive: No significant arrhythmia Abdomen Exam: Positive: Normal bowel sounds, Soft; Negative: Tenderness, Hepatospenomegaly Extremity Exam: Positive: Normal pulses; Negative: Clubbing, Cyanosis, Edema Skin Exam: Positive: Nl turgor and temperature; Negative: Breakdown, Lesion Neuro Exam: Positive: Normal Speech, Normal Tone, Other (decreased DTRs in both the lower extremities. 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 Onset Date: ~ 10/2018 Status: Acute Problem Text: Pain management Patient will get radiation treatment today for pain relief PT and progress (2) Hypercalcemia of malignancy Status: Acute Problem Text: Resolved (3) Cancer related pain Onset Date: ~ 10/2018 Status: Acute Problem Text: As above Plan/VTE VTE Prophylaxis Ordered?: Yes VS, I&O, 24H, Fishbone Vital Signs/I&O Vital Signs Date Time Temp Pulse Resp B/P (MAP) Pulse Ox O2 Delivery O2 Flow Rate FiO2 11/08/18 09:50 18 11/08/18 09:01 56 136/64 11/08/18 06:00 97.9 99 I&O- Last 24 Hours up to 6 AM 11/08/18 06:00 Intake Total 1200 ml Output Total 600 ml Balance 600 ml Laboratory Data 24H LABS Laboratory Tests 2 11/07/18 11:06: Bedside Glucose (Misc Panel) 395H 11/07/18 16:22: Bedside Glucose (Misc Panel) 249H 11/07/18 19:56: Bedside Glucose (Misc Panel) 276H 11/08/18 05:25: Immature Granulocyte % (Auto) 0.9, White Blood Count 15.1H, Red Blood Count 3.96L, Hemoglobin 10.2L, Hematocrit 29.5L, Mean Corpuscular Volume 74.5L, Mean Corpuscular Hemoglobin 25.8L, Mean Corpuscular Hemoglobin Concent 34.6, Red Cell Distribution Width 15.9H, Platelet Count 444, Neutrophils (%) (Auto) 87.5H, Lymphocytes (%) (Auto) 4.7L, Monocytes (%) (Auto) 6.8H, Eosinophils (%) (Auto) 0.0, Basophils (%) (Auto) 0.1, Neutrophils # (Auto) 13.2H, Lymphocytes # (Auto) 0.7L, Monocytes # (Auto) 1.0H, Eosinophils # (Auto) 0.0, Basophils # (Auto) 0.0, Nucleated Red Blood Cells % (auto) 0.0, Anion Gap 8, Glomerular Filtration Rate > 60.0, Blood Urea Nitrogen 14, Creatinine 0.51L, Sodium Level 136, Potassium Level 4.8, Chloride Level 104, Carbon Dioxide Level 24, Calcium Level 9.0 CBC/BMP Laboratory Tests 11/08/18 05:25 Red Blood Count 3.96 L, Mean Corpuscular Volume 74.5 L, Mean Corpuscular Hemoglobin 25.8 L, Mean Corpuscular Hemoglobin Concent 34.6, Red Cell Distribution Width 15.9 H, Neutrophils (%) (Auto) 87.5 H, Lymphocytes (%) (Auto) 4.7 L, Monocytes (%) (Auto) 6.8 H, Eosinophils (%) (Auto) 0.0, Basophils (%) (Auto) 0.1, Neutrophils # (Auto) 13.2 H, Lymphocytes # (Auto) 0.7 L, Monocytes # (Auto) 1.0 H, Eosinophils # (Auto) 0.0, Basophils # (Auto) 0.0, Calcium Level 9.0 NATALY GARZON MD November 08, 2018 10:44
[2018-11-08 14:00] VITALS: BP 142/73
[2018-11-08 14:13] LABS: FREE LAMBDA LIGHT CHAINS URINE 14.8 mg/L (0.24-6.66); KAPPA/LAMBDA RATIO URINE 26.08 (2.04-10.37)
--- NOTE | 2018-11-08 14:24 | DS.PDOC ---
Discharge Summary General Date of Admission November 01, 2018 at 21:36 Date of Discharge 11/08/18 Attending Physician: NATALY GARZON MD Discharge Summary PROCEDURES PERFORMED DURING STAY: None. ADMITTING DIAGNOSES: 1. Hypercalcemia, metastatic disease. DISCHARGE DIAGNOSES: 1. Hypercalcemia, metastatic disease. COMPLICATIONS/CHIEF COMPLAINT: Hypercalcemia Of Malignancy,Metastatic Otoniel ocarino. HISTORY OF PRESENT ILLNESS: 63 year old male with PMH of Diffuse metastatic lesions in liver, ribs and vertebrae with unknown primary found to be metastatic poorly differentiated adenocarcinoma from liver lesion biopsy, Insulin-dependent diabetes mellitus type 2, Hypertension, Hypercholesterolemia was sent in from the oncologist's office for hypercalcemia. Patient complained of severe low back pain and right hip pain. The pain is constant, dull aching in nature without any radiation. The pain started in the past week after discharge from the hospital on 10/22/18. Now it has become so severe that he is having difficulty in getting out of bed, sitting up and ambulating. He denied any constipation or urinary incontinence. He denied any loss of sensation in the perineal or anal area. Pateint had MRI of thoracic and lumber spine and CT of the pelvis which shows diffuse metastasis in almost all the vertebrae and sacrum. Small metastatic lesions C7 through T8, 2. 2 cm large metastatic lesions T9-T12. Prominent metastasis L1 vertebral body and right pedicle and facet. Severe metastasis throughout the L3 vertebral body. Metastasis of the endplates L4-L5 and S1 along with degenerative changes. Metastasis at the lower sacrum. Also shows a 3.5 cm metastatic lesion in the left iliac bone. There is also thecal sac impression from disc bulge and osteophyte complex. L4 and L5 bilateral severe foraminal narrowing due to disc bulges and osteophytes. Patient's lab work showed hypercalcemia. Patient was admitted for hypercalcemia and intractable back pain with difficulty in ambulation.. HOSPITAL COURSE: Patient was scheduled to be discharged today, but since arrangements for outpatient radiation could not be made through HIS insurance, patient will be kept in the hospital for radiation for at least few days please disregard this discharge summary. DISCHARGE MEDICATIONS: Please see below. ALLERGIES: Please see below. PHYSICAL EXAMINATION ON DISCHARGE: VITAL SIGNS: Please see below. GENERAL: HEENT: NECK: CARDIOVASCULAR EXAMINATION: RESPIRATORY EXAMINATION: ABDOMINAL EXAMINATION: EXTREMITIES: SKIN: NEUROLOGICAL EXAMINATION: PSYCHIATRIC EXAMINATION: LABORATORY DATA: Please see below. IMAGING: PROGNOSIS: ACTIVITY: As tolerated. DIET: DISCHARGE PLAN: DISPOSITION: . DISCHARGE INSTRUCTIONS: 1. . ITEMS TO FOLLOWUP ON ON OUTPATIENT: 1. . DISCHARGE CONDITION: Disregard this discharge summary. TIME SPENT ON DISCHARGE: Greater than 0 minutes. Vital Signs/I&Os Vital Signs Date Time Temp Pulse Resp B/P (MAP) Pulse Ox O2 Delivery O2 Flow Rate FiO2 11/08/18 10:30 17 11/08/18 09:01 56 136/64 11/08/18 06:00 97.9 99 I&O- Last 24 Hours up to 6 AM 11/08/18 06:00 Intake Total 1200 ml Output Total 600 ml Balance 600 ml Laboratory Data Labs 24H Laboratory Tests 2 11/07/18 16:22: Bedside Glucose (Misc Panel) 249H 11/07/18 19:56: Bedside Glucose (Misc Panel) 276H 11/08/18 05:25: Immature Granulocyte % (Auto) 0.9, White Blood Count 15.1H, Red Blood Count 3.96L, Hemoglobin 10.2L, Hematocrit 29.5L, Mean Corpuscular Volume 74.5L, Mean Corpuscular Hemoglobin 25.8L, Mean Corpuscular Hemoglobin Concent 34.6, Red Cell Distribution Width 15.9H, Platelet Count 444, Neutrophils (%) (Auto) 87.5H, Lymphocytes (%) (Auto) 4.7L, Monocytes (%) (Auto) 6.8H, Eosinophils (%) (Auto) 0.0, Basophils (%) (Auto) 0.1, Neutrophils # (Auto) 13.2H, Lymphocytes # (Auto) 0.7L, Monocytes # (Auto) 1.0H, Eosinophils # (Auto) 0.0, Basophils # (Auto) 0.0, Nucleated Red Blood Cells % (auto) 0.0, Anion Gap 8, Glomerular Filtration Rate > 60.0, Blood Urea Nitrogen 14, Creatinine 0.51L, Sodium Level 136, Potassium Level 4.8, Chloride Level 104, Carbon Dioxide Level 24, Calcium Level 9.0 11/08/18 11:32: Bedside Glucose (Misc Panel) 278H CBC/BMP Laboratory Tests 11/08/18 05:25 Red Blood Count 3.96 L, Mean Corpuscular Volume 74.5 L, Mean Corpuscular Hemoglobin 25.8 L, Mean Corpuscular Hemoglobin Concent 34.6, Red Cell Distribution Width 15.9 H, Neutrophils (%) (Auto) 87.5 H, Lymphocytes (%) (Auto) 4.7 L, Monocytes (%) (Auto) 6.8 H, Eosinophils (%) (Auto) 0.0, Basophils (%) (Auto) 0.1, Neutrophils # (Auto) 13.2 H, Lymphocytes # (Auto) 0.7 L, Monocytes # (Auto) 1.0 H, Eosinophils # (Auto) 0.0, Basophils # (Auto) 0.0, Calcium Level 9.0 FSBS Laboratory Tests Test 11/07/18 16:22 11/07/18 19:56 11/08/18 11:32 Range/Units Bedside Glucose (Misc Panel) 249 276 278 80-115 MG/DL Discharge Medications Scheduled Amlodipine Besylate (Amlodipine Besylate) 10 Mg Tablet, 10 MG PO DAILY, (Reported) Aspirin (Aspirin EC) 81 Mg Tablet.dr, 81 MG PO DAILY, (Reported) Atorvastatin Calcium (Atorvastatin Calcium) 40 Mg Tab, 40 MG PO DAILY, (Reported) Carvedilol (Carvedilol) 25 Mg Tablet, 12.5 MG PO BID, (Reported) Chlorthalidone (Chlorthalidone) 25 Mg Tablet, 25 MG PO DAILY, (Reported) Cholecalciferol (Vitamin D3) (Vitamin D3) 1,000 Unit Tab, 1,000 UNITS PO DAILY, (Reported) Insulin Glargine (Lantus) 100 Unit/1 Ml Vial, 25 UNITS SC QHS, (Reported) Insulin Human Lispro (Novolog) 100 Unit/1 Ml Vial, 10 UNITS SC AC, (Reported) Lisinopril (Lisinopril) 10 Mg Tablet, 10 MG PO QHS, (Reported) Metformin HCl (Metformin HCl) 1,000 Mg Tab, 1,000 MG PO BID, (Reported) [place]-3 Fatty Acids/Fish Oil (Fish Oil 1,000 mg Capsule) 1,000 Mg Cap, 2,000 MG PO BID, (Reported) Scheduled PRN Acetaminophen (Acetaminophen) 500 Mg Tablet, 1,000 MG PO Q6H PRN for PAIN, (Reported) Oxycodone HCl (Oxycodone HCl) 5 Mg Tablet, 5 MG PO TID PRN for PAIN, (Reported) CAN TAKE A SECOND TABLET PER DOSE Allergies Coded Allergies: No Known Drug Allergies (Verified Allergy, Unknown, 10/20/18) NATALY GARZON MD November 08, 2018 14:24
[2018-11-08] MEDS: LISINOPRIL 10 MG TAB PO SCH (21:43)
[2018-11-09 06:00] VITALS: BP 152/72
[2018-11-09] MEDS: oxyCODONE 5MG TAB PO PRN ×2 (09:04→17:47)
[2018-11-09] MEDS: ATORVASTATIN 20 MG TAB PO SCH (09:04)
[2018-11-09] MEDS: HEPARIN SOD (PORCINE) 5000 UNITS/ML VIAL SC SCH ×2 (09:05→20:09)
[2018-11-09] MEDS: ASPIRIN 81 MG ENTERIC TAB PO SCH (09:05)
[2018-11-09] MEDS: amLODIPine 10 MG TAB PO SCH (09:06)
[2018-11-09] MEDS: CARVedilol 12.5 MG TAB PO SCH ×2 (09:06→20:09)
[2018-11-09] MEDS: LEVEMIR (INSULIN DETEMIR) 1 UNITS/0.01ML SC SCH (09:07)
[2018-11-09] MEDS: HumaLOG INSULIN (NovoLOG) PER UNIT SC SCH ×4 (09:07→21:21)
--- NOTE | 2018-11-09 11:35 | IPNPDOC ---
Subjective Date Seen The patient was seen on 11/09/18. Subjective Chief Complaint/HPI Patient offers no new complaints at the present time, unable to be discharged because arrangements for outpatient radiation therapy could not be made by his insurance General: Denies: ROS Unobtainable, Chills, Night Sweats, Fatigue, Malaise, Normal Appetite, Other Symptoms Constitutional: Denies: Chills, Fever, Malaise, Night Sweats, Weakness, Fatigue, Weight Loss, Lethargy, Other Eyes: Denies: Pain, Vision change, Conjunctivae inflammation, Eyelid inflammation, Redness, Other ENT: Denies: Head Aches, Ear Pain, Dysphagia, Sinus Congestion, Post Nasal Drip, Sore Throat, Epistaxis, Other Symptoms Skin: Denies: Rash, Lesions, Jaundice, Bruising, Itching, Dry, Breakdown, Nail Changes, Other Pulmonary: Denies: Dyspnea, Cough, Pleuritic Chest Pain, Other Symptoms Cardiovascular: Denies: Chest Pain, Palpitations, Orthopnea, Paroxysmal Noc. Dyspnea, Edema, Lt Headedness, Other Symptoms Gastrointestinal: Denies: Nausea, Vomiting, Abdominal Pain, Diarrhea, Constipation, Melena, Hematochezia, Other Symptoms Genitourinary: Denies: Dysuria, Frequency, Incontinence, Hematuria, Retention, Other Symptoms Hematologic: Denies: Bruising, Bleeding Excessively, Petecchia, Purpura, Enlarged Lymph Nodes, Other Hematologic Endocrine: Denies: Polydipsia, Polyphagia, Polyuria, Heat Intolerance, Cold Intolerance, Other Endocrine Sx Musculoskeletal: Denies: Neck Pain, Back Pain, Shoulder Pain, Arm Pain, Hand Pain, Leg Pain, Foot Pain, Joint Pain, Muscle Pain, Spasms, Other Symptoms Neurological: Denies: Weakness, Numbness, Incoordination, Change in speech, Confusion, Seizures, Other Symptoms Psych: Denies: Mood Normal, Anxiety, Depression, Memory Issues, Thoughts of Self Harm, Anger, Thoughts of Harming Other, Other Psych Objective Physical Examination General Exam: Positive: Alert, Cooperative, Moderate Distress (because of back and hip pain) Eye Exam: Positive: PERRLA, Conjunctiva & lids normal, EOMI; Negative: Sclera icteric ENT Exam: Positive: Atraumatic, Mucous membr. moist/pink, Pharynx Normal Neck Exam: Positive: Supple Chest Exam: Positive: Clear to auscultation, Normal air movement Heart Exam: Positive: Rate Normal, Regular Rhythm, Normal S1, Normal S2; Negative: Murmurs, Rubs Telemetry: Positive: No significant arrhythmia Abdomen Exam: Positive: Normal bowel sounds, Soft; Negative: Tenderness, Hepatospenomegaly Extremity Exam: Positive: Normal pulses; Negative: Clubbing, Cyanosis, Edema Skin Exam: Positive: Nl turgor and temperature; Negative: Breakdown, Lesion Neuro Exam: Positive: Normal Speech, Normal Tone, Other (decreased DTRs in both the lower extremities. 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 She will continue getting radiation therapy while visiting patient Case management is working to get approval for outpatient radiation therapy To the prudent then we'll discharge patient home (2) Hypercalcemia of malignancy Status: Acute Problem Text: Resolved (3) Cancer related pain Onset Date: ~ 10/2018 Status: Acute Problem Text: As above Plan/VTE VTE Prophylaxis Ordered?: Yes VS, I&O, 24H, Fishbone Vital Signs/I&O Vital Signs Date Time Temp Pulse Resp B/P (MAP) Pulse Ox O2 Delivery O2 Flow Rate FiO2 11/09/18 09:34 18 11/09/18 09:06 72 134/74 11/09/18 06:00 97.8 94 I&O- Last 24 Hours up to 6 AM 11/09/18 06:00 Intake Total 1740 ml Output Total 650 ml Balance 1090 ml Laboratory Data 24H LABS Laboratory Tests 2 11/08/18 16:40: Bedside Glucose (Misc Panel) 266H 11/08/18 21:38: Bedside Glucose (Misc Panel) 151H 11/09/18 05:38: Bedside Glucose (Misc Panel) 156H 11/09/18 11:28: Bedside Glucose (Misc Panel) 246H NATALY GARZON MD November 09, 2018 11:35
[2018-11-09 14:00] VITALS: BP 131/60
[2018-11-09] MEDS: LISINOPRIL 10 MG TAB PO SCH (20:08)
[2018-11-09 22:00] VITALS: BP 117/59
[2018-11-10] MEDS: oxyCODONE 5MG TAB PO PRN ×4 (00:32→17:56)
[2018-11-10 06:00] VITALS: BP 159/80
[2018-11-10] MEDS: ASPIRIN 81 MG ENTERIC TAB PO SCH (09:13)
[2018-11-10] MEDS: HumaLOG INSULIN (NovoLOG) PER UNIT SC SCH ×4 (09:13→22:37)
[2018-11-10] MEDS: ATORVASTATIN 20 MG TAB PO SCH (09:13)
[2018-11-10] MEDS: LEVEMIR (INSULIN DETEMIR) 1 UNITS/0.01ML SC SCH (09:13)
[2018-11-10] MEDS: HEPARIN SOD (PORCINE) 5000 UNITS/ML VIAL SC SCH ×2 (09:14→22:37)
[2018-11-10] MEDS: amLODIPine 10 MG TAB PO SCH (09:17)
[2018-11-10] MEDS: CARVedilol 12.5 MG TAB PO SCH ×2 (09:18→22:37)
[2018-11-10 09:54] LABS: UPEP INTERPRETATION NO M-SPIKE NOTED; URINE VOLUME RANDOM ML
--- NOTE | 2018-11-10 11:52 | IPNPDOC ---
Subjective Date Seen The patient was seen on 11/10/18. Subjective Chief Complaint/HPI Patient wants him paperwork to be filled out as he is scheduled here to get radiation till 11/17/2018 General: Denies: ROS Unobtainable, Chills, Night Sweats, Fatigue, Malaise, Normal Appetite, Other Symptoms Constitutional: Denies: Chills, Fever, Malaise, Night Sweats, Weakness, Fatigue, Weight Loss, Lethargy, Other Eyes: Denies: Pain, Vision change, Conjunctivae inflammation, Eyelid inflammation, Redness, Other ENT: Denies: Head Aches, Ear Pain, Dysphagia, Sinus Congestion, Post Nasal Drip, Sore Throat, Epistaxis, Other Symptoms Skin: Denies: Rash, Lesions, Jaundice, Bruising, Itching, Dry, Breakdown, Nail Changes, Other Pulmonary: Denies: Dyspnea, Cough, Pleuritic Chest Pain, Other Symptoms Cardiovascular: Denies: Chest Pain, Palpitations, Orthopnea, Paroxysmal Noc. Dyspnea, Edema, Lt Headedness, Other Symptoms Gastrointestinal: Denies: Nausea, Vomiting, Abdominal Pain, Diarrhea, Constipation, Melena, Hematochezia, Other Symptoms Genitourinary: Denies: Dysuria, Frequency, Incontinence, Hematuria, Retention, Other Symptoms Hematologic: Denies: Bruising, Bleeding Excessively, Petecchia, Purpura, Enlarged Lymph Nodes, Other Hematologic Endocrine: Denies: Polydipsia, Polyphagia, Polyuria, Heat Intolerance, Cold Intolerance, Other Endocrine Sx Musculoskeletal: Denies: Neck Pain, Back Pain, Shoulder Pain, Arm Pain, Hand Pain, Leg Pain, Foot Pain, Joint Pain, Muscle Pain, Spasms, Other Symptoms Neurological: Denies: Weakness, Numbness, Incoordination, Change in speech, Confusion, Seizures, Other Symptoms Psych: Denies: Mood Normal, Anxiety, Depression, Memory Issues, Thoughts of Self Harm, Anger, Thoughts of Harming Other, Other Psych Objective Physical Examination General Exam: Positive: Alert, Cooperative, Moderate Distress (because of back and hip pain) Eye Exam: Positive: PERRLA, Conjunctiva & lids normal, EOMI; Negative: Sclera icteric ENT Exam: Positive: Atraumatic, Mucous membr. moist/pink, Pharynx Normal Neck Exam: Positive: Supple Chest Exam: Positive: Clear to auscultation, Normal air movement Heart Exam: Positive: Rate Normal, Regular Rhythm, Normal S1, Normal S2; Negative: Murmurs, Rubs Telemetry: Positive: No significant arrhythmia Abdomen Exam: Positive: Normal bowel sounds, Soft; Negative: Tenderness, Hepatospenomegaly Extremity Exam: Positive: Normal pulses; Negative: Clubbing, Cyanosis, Edema Skin Exam: Positive: Nl turgor and temperature; Negative: Breakdown, Lesion Neuro Exam: Positive: Normal Speech, Normal Tone, Other (decreased DTRs in both the lower extremities. 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 Onset Date: ~ 10/2018 Status: Acute Problem Text: Pain management Patient is scheduled to get radiation therapy till 11/17/2018 PT and progress (2) Hypercalcemia of malignancy Status: Acute Problem Text: Resolved (3) Cancer related pain Onset Date: ~ 10/2018 Status: Acute Problem Text: As above Plan/VTE VTE Prophylaxis Ordered?: Yes VS, I&O, 24H, Fishbone Vital Signs/I&O Vital Signs Date Time Temp Pulse Resp B/P (MAP) Pulse Ox O2 Delivery O2 Flow Rate FiO2 11/10/18 09:42 18 11/10/18 09:17 86 154/70 11/10/18 06:00 97.7 100 I&O- Last 24 Hours up to 6 AM 11/10/18 06:00 Intake Total 2790 ml Output Total 450 ml Balance 2340 ml Laboratory Data 24H LABS Laboratory Tests 2 11/09/18 16:26: Bedside Glucose (Misc Panel) 389H 11/09/18 20:34: Bedside Glucose (Misc Panel) 283H 11/10/18 06:02: Bedside Glucose (Misc Panel) 255H NATALY GARZON MD November 10, 2018 11:52
[2018-11-10 22:00] VITALS: BP 157/75
[2018-11-10] MEDS: LISINOPRIL 10 MG TAB PO SCH (22:37)
[2018-11-11] MEDS: oxyCODONE 5MG TAB PO PRN ×2 (00:37→08:40)
[2018-11-11 06:00] VITALS: BP 131/74
[2018-11-11] MEDS: ASPIRIN 81 MG ENTERIC TAB PO SCH (08:40)
[2018-11-11] MEDS: ATORVASTATIN 20 MG TAB PO SCH (08:40)
[2018-11-11] MEDS: LEVEMIR (INSULIN DETEMIR) 1 UNITS/0.01ML SC SCH (08:41)
[2018-11-11] MEDS: HumaLOG INSULIN (NovoLOG) PER UNIT SC SCH (08:41)
[2018-11-11] MEDS: HEPARIN SOD (PORCINE) 5000 UNITS/ML VIAL SC SCH (08:42)
[2018-11-11 08:43] VITALS: BP 136/62
[2018-11-11] MEDS: amLODIPine 10 MG TAB PO SCH (08:43)
[2018-11-11] MEDS: CARVedilol 12.5 MG TAB PO SCH (08:43)
--- NOTE | 2018-11-11 12:15 | DS.PDOC ---
Discharge Summary General Date of Admission November 01, 2018 at 21:36 Date of Discharge 11/11/2018 Discharge Summary PROCEDURES PERFORMED DURING STAY: None. ADMITTING DIAGNOSES: 1. Hypercalcemia, adenocarcinoma of unknown origin with metastases. DISCHARGE DIAGNOSES: 1. Hypercalcemia, worsening of unknown origin with metastases COMPLICATIONS/CHIEF COMPLAINT: Hypercalcemia Of Malignancy,Metastatic Adenocarino. HISTORY OF PRESENT ILLNESS: 63 year old male with PMH of Diffuse metastatic lesions in liver, ribs and vertebrae with unknown primary found to be metastatic poorly differentiated adenocarcinoma from liver lesion biopsy, Insulin-dependent diabetes mellitus type 2, Hypertension, Hypercholesterolemia was sent in from the oncologist's office for hypercalcemia. Patient complained of severe low back pain and right hip pain. The pain is constant, dull aching in nature without any radiation. The pain started in the past week after discharge from the hospital on 10/22/18. Now it has become so severe that he is having difficulty in getting out of bed, sitting up and ambulating. He denied any constipation or urinary incontinence. He denied any loss of sensation in the perineal or anal area. Pateint had MRI of thoracic and lumber spine and CT of the pelvis which shows diffuse metastasis in almost all the vertebrae and sacrum. Small metastatic lesions C7 through T8, 2. 2 cm large metastatic lesions T9-T12. Prominent metastasis L1 vertebral body and right pedicle and facet. Severe metastasis throughout the L3 vertebral body. Metastasis of the endplates L4-L5 and S1 along with degenerative changes. Metastasis at the lower sacrum. Also shows a 3.5 cm metastatic lesion in the left iliac bone. There is also thecal sac impression from disc bulge and osteophyte complex. L4 and L5 bilateral severe foraminal narrowing due to disc bulges and osteophytes. Patient's lab work showed hypercalcemia. Patient was admitted for hypercalcemia and intractable back pain with difficulty in ambulation.. HOSPITAL COURSE: Patient was admitted with the chief complaints of painful meds at his hip and spine. He was seen by oncology by Dr. Mclaughlin and recommended radiation oncology. Patient was seen by radiation oncology and radiation treatment has been started. He did receive 6 courses of so far and will continue to receive till 11/17/2018 Should cleared by physical therapy and will be discharged home and will continue additional therapy as an outpatient [facility] oncologist in one week. He has been recommended DISCHARGE MEDICATIONS: Please see below. ALLERGIES: Please see below. PHYSICAL EXAMINATION ON DISCHARGE: VITAL SIGNS: Please see below. GENERAL: HEENT: NECK: CARDIOVASCULAR EXAMINATION: RESPIRATORY EXAMINATION: ABDOMINAL EXAMINATION: EXTREMITIES: SKIN: NEUROLOGICAL EXAMINATION: PSYCHIATRIC EXAMINATION: LABORATORY DATA: Please see below. IMAGING: As above PROGNOSIS: Poor ACTIVITY: As tolerated. DIET: As tolerated DISCHARGE PLAN: Continue radiation therapy as ordered DISPOSITION: . Home DISCHARGE INSTRUCTIONS: 1. As above. ITEMS TO FOLLOWUP ON ON OUTPATIENT: 1. . DISCHARGE CONDITION: Stable. TIME SPENT ON DISCHARGE: 38 minutes. Vital Signs/I&Os Vital Signs Date Time Temp Pulse Resp B/P (MAP) Pulse Ox O2 Delivery O2 Flow Rate FiO2 11/11/18 09:10 16 11/11/18 08:43 73 136/62 11/11/18 06:00 96.9 97 I&O- Last 24 Hours up to 6 AM 11/11/18 06:00 Intake Total 1050 ml Balance 1050 ml Laboratory Data Labs 24H Laboratory Tests 2 11/10/18 16:59: Bedside Glucose (Misc Panel) 266H 11/10/18 20:35: Bedside Glucose (Misc Panel) 163H 11/11/18 05:54: Bedside Glucose (Misc Panel) 281H FSBS Laboratory Tests Test 11/10/18 16:59 11/10/18 20:35 11/11/18 05:54 Range/Units Bedside Glucose (Misc Panel) 266 163 281 80-115 MG/DL Discharge Medications Scheduled Amlodipine Besylate (Amlodipine Besylate) 10 Mg Tablet, 10 MG PO DAILY, (Reported) Aspirin (Aspirin EC) 81 Mg Tablet.dr, 81 MG PO DAILY, (Reported) Atorvastatin Calcium (Atorvastatin Calcium) 40 Mg Tab, 40 MG PO DAILY, (Reported) Carvedilol (Carvedilol) 25 Mg Tablet, 12.5 MG PO BID, (Reported) Chlorthalidone (Chlorthalidone) 25 Mg Tablet, 25 MG PO DAILY, (Reported) Cholecalciferol (Vitamin D3) (Vitamin D3) 1,000 Unit Tab, 1,000 UNITS PO DAILY, (Reported) Insulin Glargine (Lantus) 100 Unit/1 Ml Vial, 25 UNITS SC QHS, (Reported) Insulin Human Lispro (Novolog) 100 Unit/1 Ml Vial, 10 UNITS SC AC, (Reported) Lisinopril (Lisinopril) 10 Mg Tablet, 10 MG PO QHS, (Reported) Metformin HCl (Metformin HCl) 1,000 Mg Tab, 1,000 MG PO BID, (Reported) [place]-3 Fatty Acids/Fish Oil (Fish Oil 1,000 mg Capsule) 1,000 Mg Cap, 2,000 MG PO BID, (Reported) Scheduled PRN Acetaminophen (Acetaminophen) 500 Mg Tablet, 1,000 MG PO Q6H PRN for PAIN, (Reported) Oxycodone HCl (Oxycodone HCl) 5 Mg Tablet, 5 MG PO TID PRN for PAIN, (Reported) CAN TAKE A SECOND TABLET PER DOSE Allergies Coded Allergies: No Known Drug Allergies (Verified Allergy, Unknown, 10/20/18) NATALY GARZON MD November 11, 2018 12:15
== END 2018-11-11 12:08 | disposition home health service (06) | DRG 641 ==
LOC: M ED 20:39 → M ED INP 21:36 → M PCU 23:30 → M MSPAV 11-04 14:26
PROVIDERS: ADMIT Internal Medicine Nephrology; ATTEND Internal Medicine
DX: E83.52 Hypercalcemia (principal); C78.7 Secondary malignant neoplasm of liver and intrahepatic bile duct; C79.51 Secondary malignant neoplasm of bone; C80.1 Malignant (primary) neoplasm, unspecified; E11.9 Type 2 diabetes mellitus without complications; I10 Essential (primary) hypertension; E78.00 Pure hypercholesterolemia, unspecified; Z79.82 Long term (current) use of aspirin; Z79.899 Other long term (current) drug therapy; Z87.891 Personal history of nicotine dependence; G89.3 Neoplasm related pain (acute) (chronic)

== ENCOUNTER → 2018-11-01 | Outpatient (CLI) | payer OTHER ==
[~2018-11-01] MED LIST changes: +ACET500T15 PO; +ASPI81TA26 PO; +ASPI81TA85 PO; +CARV25TA PO; +CHLO25TA PO; +INSUH10VL SC; +INSULANT SC; +LANTINJ4 SC; +LISI10TA4 PO; +OXYC-517 PO; +PROHANCE 279.3MG/ML 15ML VIAL (A9576) As Ordered ONE; +PROHANCE 279.3MG/ML 5ML VIAL (A9576) As Ordered ONE; +VICT18IN SC
--- NOTE | 2018-11-01 21:28 | REPVR ---
EXAM: MR Thoracic Spine Without and With Contrast EXAM DATE/TIME: 11/01/2018 8:38 PM CLINICAL HISTORY: 63 years old, male; Pain and abnormal findings; Abnormal lab test; Abnormal calcium level; Pain in thoracic spine; With radiculopathy; Bilateral; Patient HX: Elevated psa, ? mets; Additional info: Severe back pain TECHNIQUE: Imaging protocol: Multiplanar magnetic resonance images of the thoracic spine without and with intravenous contrast. Contrast material: PROHANCE; Contrast volume: 20 ml; Contrast route: IV; COMPARISON: No relevant prior studies available. FINDINGS: The thoracic cord is normal in size and ending at L1. There are small patchy areas of bright signal intensity C7 through T8 consistent with small metastatic lesions. There are large rounded areas of bright signal intensity T9, T10, T11, and T12 consistent with areas of metastatic lesions measuring approximately 2 CM in size each. There is bright signal intensity throughout the entire L1 vertebra and involving the right pedicle and facets. There is a posterior bony ridge impressing on the thecal sac at this location. IMPRESSION: 1. Small metastatic lesions C7 through T8. 2. 2 cm large metastatic lesions T9-T12. 3. Metastatic involvement of much of the L1 vertebra and also the right pedicle and facet. Electronically signed by: Holden Paige On 11/01/2018 21:28:23 PM
--- NOTE | 2018-11-01 21:58 | REPVR ---
EXAM: MR Lumbar Spine Without and With Contrast. EXAM DATE/TIME: 11/01/2018 8:38 PM CLINICAL HISTORY: 63 years old, male; Pain and abnormal findings; Abnormal lab test; Abnormal calcium level; Low back pain; Patient HX: Elevated psa, ? mets; Additional info: Severe back pain TECHNIQUE: Imaging protocol: Multiplanar magnetic resonance images of the lumbar spine without and with intravenous contrast. Contrast material: PROHANCE; Contrast volume: 20 ml; Contrast route: IV; COMPARISON: No relevant prior studies available. FINDINGS: The conus is normal in size and ending at L5. There is no evidence of abnormal contrast enhancement in the region of the conus. There is a 2 CM oval area of enhancement of the lower sacrum consistent with a metastatic lesion. L5-S1: There is abnormal signal intensity of the vertebral endplates L5-S1, this is a combination of degenerative change and probable metastasis especially on the left. There is moderate posterior disc protrusion/osteophyte complex causing impression on the thecal sac. There is severe bilateral L5 neural foramina narrowing. L4-L5: There is abnormal signal intensity along the endplates of L4 consistent with metastasis and degenerative changes. There is moderate broad-based disc protrusion. There is severe bilateral L4 neural foramina narrowing secondary to disc protrusion and hypertrophy. L3 L4: There is abnormal signal intensity and patchy enhancement throughout the L3 vertebra consistent with metastasis. There is mild posterior osteophyte formation. L2-L3: There is moderate broad-based disc protrusion. There is moderate bilateral L2 neural foramina narrowing. L1 vertebra: There is metastasis throughout the L1 vertebral body with bowing of the posterior cortex. There is metastasis of abnormal signal intensity right L1 pedicle and facets consistent with metastasis. 2 cm area of metastasis T12 on the right. IMPRESSION: 1. Prominent metastasis L1 vertebral body and right pedicle and facet. 2. Severe metastasis throughout the L3 vertebral body. Metastasis of the endplates L4-L5 and S1 along with degenerative changes. Metastasis at the lower sacrum. Electronically signed by: Holden Paige On 11/01/2018 21:57:52 PM
== END ==
LOC: M RAD 15:53
PROVIDERS: ATTEND Internal Medicine Medical Oncology
DX: C79.51 Secondary malignant neoplasm of bone (principal)

== ENCOUNTER → 2018-11-11 | Outpatient (RCR) | payer OTHER ==
--- NOTE | 2018-11-04 06:06 | RADONC ---
RADIATION ONCOLOGY SIMULATION NOTE DATE: 11/02/2018 CHART #: [id number] Mr. Parisi was taken to the CT scan for CT simulation of his spinal field. CT was accomplished without difficulty or discomfort. Radiation treatment planning is underway and radiation treatments will begin subsequently. An immobilization device was created and will be used throughout the course of treatment. It was created without difficulty or discomfort. I was physically present throughout the course of CT simulation.
--- NOTE | 2018-11-08 10:30 | RADONC ---
RADIATION ONCOLOGY PROGRESS NOTE DATE: 11/08/2018 CHART NUMBER: [id number] Mr. Parisi is presently at a dose of 900 cGy to his lower thoracic lumbar and sacral spine and is tolerating treatments quite well at this point with no complaints related to his radiation therapy. He reports that he feels better today overall. The patient's review of systems is largely unchanged. He continues to be presenting in a stretcher with mobility issues. PHYSICAL EXAMINATION The patient's skin is in excellent condition with no evidence of radiation change present. There is no moist or dry desquamation. The remainder of his physical exam remains unchanged. Mr. Parisi is tolerating treatments quite well and radiation will continue as scheduled. We will arrange for medical oncology to see this patient to deal with systemic therapy issues.
[~2018-11-11] MED LIST changes: +ASPI81TA26 PO; +INSULANT SC; +OXYC-517 PO
== END ==
LOC: M ONCR 11-03 15:12
PROVIDERS: ATTEND Radiology Radiation Oncology
DX: C79.51 Secondary malignant neoplasm of bone (principal); C80.1 Malignant (primary) neoplasm, unspecified

== ENCOUNTER 2018-11-17 08:43 | Outpatient (RCR) | payer OTHER ==
--- NOTE | 2018-11-14 12:44 | RADONC ---
RADIATION ONCOLOGY PROGRESS NOTE DATE: 11/14/2018 CHART NUMBER: [id number] PROGRESS NOTE: Mr. Parisi with a diagnosis of metastatic disease to the lower thoracic and lumbar spine is currently receiving palliative local regional radiotherapy. His current dose is 2100 centigray of a proposed 3000 centigray and treatments are well tolerated. REVIEW OF SYSTEMS: Unfortunately, the patient continues to have a significant amount of pain and remains on oxycodone 1-2 tablets every 6 hours. The pain pills give him adequate relief. He feels that perhaps he is standing with a little less pain but still is quite concerned about his pain. He denies any nausea, vomiting, diarrhea, dysuria, hematuria or blood per rectum. EXAMINATION FINDINGS: Skin within the irradiated volume shows neither erythema nor desquamation. Lymphatics: No palpable peripheral lymphadenopathy is appreciated. The remainder of the physical examination is unchanged. IMPRESSION: Tolerating therapy well with some vague improvement of his pain. PLAN: Treatments to continue.
--- NOTE | 2018-11-17 12:12 | RADONC ---
RADIATION ONCOLOGY TREATMENT SUMMARY DATE: 11/17/2018 CHART #: [id number] DIAGNOSIS: Unknown primary carcinoma. STAGE: IV, widely metastatic. ECOG PERFORMANCE STATUS: 4. TREATMENT SUMMARY: Plan of Radiotherapy: Palliative (palliation of pain). Date radiotherapy started 11/03/2018. Date radiotherapy concluded 11/17/2018. Dose: The patient received a total of 3000 cGy administered in 10 fractions over 14 elapsed days. He was treated exclusively with a 15 MV photon beam 100 cm SAD. The areas of treatment included T8 through S1 and he received 300 cGy per day assessed at a depth of 7 cm through a direct posterior portal. Status of Tumor: The patient had a fair to good response with regards to his pain, but he was still on pain medication at the conclusion of his radiotherapy. Tolerance: In general, the patient tolerated his radiotherapy quite well, denying any significant nausea, vomiting, diarrhea, dysuria, hematuria or blood per rectum. His energy level was diminished significantly. DISPOSITION: Return to the clinic in approximately 1 month for post radiotherapy followup visit. He was instructed to return to his referring physicians as per their directions and instructions. Thank you for referring this fine gentleman to us and allowing us the opportunity of participation in his overall management. cc: MD Darcie Chamberlain MD
== END 2018-11-29 ==
LOC: M ONCR 08:43
PROVIDERS: ATTEND Radiology Radiation Oncology
DX: C79.51 Secondary malignant neoplasm of bone (principal); C80.1 Malignant (primary) neoplasm, unspecified

== ENCOUNTER 2018-11-22 03:25 | Emergency (ER) | payer OTHER ==
[~2018-11-22] VITALS: Ht 188 cm; Wt 100.0 kg
[2018-11-22] MEDS ORDERED: MORPHINE 4 MG/ML 1ML VIAL/SYRINGE (J2270) IV ONE (05:00)
[2018-11-22 05:01] VITALS: BP 171/81
[2018-11-22] MEDS ORDERED: MORPHINE 2 MG/ML 1ML SYRINGE (J2270) IV ONE (05:30)
[2018-11-22] MEDS ORDERED: NORCO 5/325MG TABLET (BULK FOR ED) PO ONE (05:30)
== END 2018-11-22 05:42 | disposition home or self-care (01) ==
LOC: M ED 03:25
DX: G89.3 Neoplasm related pain (acute) (chronic) (principal); C25.9 Malignant neoplasm of pancreas, unspecified; M54.9 Dorsalgia, unspecified; E11.9 Type 2 diabetes mellitus without complications; I10 Essential (primary) hypertension; N28.9 Disorder of kidney and ureter, unspecified; Z79.899 Other long term (current) drug therapy; Z79.82 Long term (current) use of aspirin; Z79.4 Long term (current) use of insulin
CPT/HCPCS: 96374; 99284; J2270

== ENCOUNTER 2018-11-29 07:44 | Emergency (ER) | payer OTHER ==
[2018-11-29] MEDS ORDERED: ATROPINE SULF 1MG/10ML SYRINGE (J0461) ONE (07:45)
[2018-11-29] MEDS ORDERED: EPINEPHrine 1MG/10ML SYRINGE 1.5IN ONE (07:45)
[2018-11-29] MEDS ORDERED: SODIUM BICARBONATE 8.4% INJ 50MEQ 50 ML VIAL ONE (07:45)
[2018-11-29 08:06] LABS: BASO # 0.1 10^3/uL (0.0-0.2); BASO % 0.7 % (0.0-1.0); EOS # 0.1 10^3/uL (0.0-0.50); EOS % 0.7 % (0.0-3.0); HEMATOCRIT 30.4 % (42.0-52.0); HEMOGLOBIN 9.1 g/dl (13.5-17.5); LYMPH # 3.8 10^3/uL (1.5-4.5); LYMPH % 31.7 % (24.0-44.0); MEAN CORPUSCULAR HGB CONC 29.9 g/dl (32.0-36.5); MEAN CORPUSCULAR VOLUME 83.5 fl (80.0-96.0); MONO # 1.9 10^3/uL (0.0-0.8); MONO % 16.1 % (0.0-5.0); NEUTROPHILS # 5.5 10^3/uL (1.8-7.7); NEUTROPHILS % 46.3 % (36.0-66.0); PLATELET COUNT, AUTOMATED 112 10^3/uL (150-450); RED BLOOD COUNT 3.64 10^6/uL (4.30-6.10); WHITE BLOOD COUNT 11.9 10^3/uL (4.0-10.0)
[2018-11-29] MEDS ORDERED: EPINEPHrine 1MG/10ML SYRINGE 1.5IN As Ordered ONE (08:20)
[2018-11-29 08:22] LABS: INR 2.71; PARTIAL THROMBOPLASTIN TIME 46.2 SECONDS (25.4-37.6); PROTHROMBIN TIME 29.3 SECONDS (12.1-14.4)
[2018-11-29 08:35] LABS: ALBUMIN 1.9 GM/DL (3.2-5.2); ALT/SGPT 30 U/L (12-78); BILIRUBIN,DIRECT 0.7 MG/DL (0.0-0.2); BILIRUBIN,TOTAL 0.9 MG/DL (0.2-1.0); BLOOD UREA NITROGEN 11 MG/DL (7-18); CALCIUM LEVEL 9.8 MG/DL (8.8-10.2); CARBON DIOXIDE LEVEL 17 MEQ/L (21-32); CHLORIDE LEVEL 107 MEQ/L (98-107); CK-MB VALUE MASS 1.2 NG/ML (<3.6); CPK CREATINE PHOSPHOKINASE 55 U/L (39-308); CREATININE FOR GFR 0.94 MG/DL (0.70-1.30); GLOMERULAR FILTRATION RATE > 60.0 (>49); GLUCOSE, FASTING 163 MG/DL (70-100); MB/CK RELATIVE INDEX 2.18 (< OR =4); POTASSIUM SERUM 4.2 MEQ/L (3.5-5.1); SODIUM LEVEL 143 MEQ/L (136-145); TOTAL PROTEIN 5.3 GM/DL (6.4-8.2); TROPONIN I 0.04 NG/ML (< 0.10)
--- NOTE | 2018-11-29 08:39 | REP ---
PORTABLE CHEST: AP portable view of the chest is performed. Endotracheal tube is seen with the tip approximately 3.8 cm above the cindy. Mild patchy atelectasis or infiltrate seen in the left lung base. Right lung appears clear. Heart and mediastinum are somewhat magnified by technique. Electronically Signed by Rodríguez Perkins MD 11/29/2018 04:27 P
[2018-11-29 08:51] VITALS: BP 137/88
[2018-11-29] MEDS ORDERED: EPINEPHrine 1MG/10ML SYRINGE 1.5IN IV STA ×10 (09:04)
[2018-11-29] MEDS ORDERED: ATROPINE SULF 1MG/10ML SYRINGE (J0461) IV STA (09:04)
[2018-11-29] MEDS ORDERED: NALOXONE INJ 2 MG/2 ML SYRINGE (J2310) IV STA (09:04)
[2018-11-29] MEDS ORDERED: SODIUM BICARBONATE 8.4% INJ 50 ML SYRINGE IV STA (09:04)
[2018-11-29 09:05] LABS: ABG BASE EXCESS -27.1 (-2.0-2.0); ABG HCO3 6.5 MEQ/L (22.0-26.0); ABG PARTIAL PRESSURE CO2 45.4 mmHg (35.0-45.0); ABG PARTIAL PRESSURE O2 132.7 mmHg (75.0-100.0); ABG STANDARD HCO3 4.9 MEQ/L (22.0-26.0); ABG TOTAL CO2 7.9 MEQ/L (23.0-31.0); ABG pH (ARTERIAL) 6.777 UNITS (7.350-7.450)
== END 2018-11-29 10:47 | disposition expired ==
LOC: M ED 07:44
DX: I46.9 Cardiac arrest, cause unspecified (principal); C80.1 Malignant (primary) neoplasm, unspecified; C79.9 Secondary malignant neoplasm of unspecified site; E11.9 Type 2 diabetes mellitus without complications; Z79.4 Long term (current) use of insulin; Z79.82 Long term (current) use of aspirin; Z79.899 Other long term (current) drug therapy
CPT/HCPCS: 31500; 71045; 80048; 80076; 82140; 82550; 82553; 82803; 83605; 84484; 85025; 85610; 85730; 92950; 96374; 96375; 99291; J0461; J2310